=== PATIENT | male | born 1965 | race Caucasian/White ===

== ENCOUNTER 2017-09-08 09:01 | Emergency (ER) | payer SELFPAY ==
[~2017-09-08] VITALS: Ht 198.1 cm; Wt 86.0 kg
[2017-09-08 09:07] VITALS: BP 145/96; PULSE 103; RESP 20; TEMP 97.8; O2SAT 93
[2017-09-08] MEDS ORDERED: AMBI5TAB PO (09:26)
[2017-09-08] MEDS ORDERED: MORP-43 PO (09:26)
[2017-09-08] MEDS ORDERED: OXYC1CAP PO (09:26)
[2017-09-08] MEDS ORDERED: PROT40TA PO (09:26)
[2017-09-08] MEDS ORDERED: CARA1TAB6 PO (09:26)
[2017-09-08] MEDS ORDERED: ONDANSETRON HCL 4 MG/2 ML VIAL IV PUSH ONE (09:45)
[2017-09-08] MEDS ORDERED: SODIUM CHLOR 0.9% 1000 ML INJ 1,000 ML IV ONE (09:45)
[2017-09-08] MEDS ORDERED: SODIUM CHLORIDE 0.9% FLUSH 10 ML FLUSH IVF PRN (09:45)
[2017-09-08 09:46] VITALS: O2SAT 94; O2SAT 97
[2017-09-08 09:57] LABS: AUTOMATED NEUTROPHIL # 5.3 TH/MM3 (1.8-7.7); BASOPHIL % 0.5 % (0.0-2.0); EOSINOPHIL # 0.1 TH/MM3 (0-0.4); EOSINOPHIL % 1.9 % (0.0-4.0); HEMATOCRIT 45.4 % (39.0-51.0); LYMPH % 26.4 % (9.0-44.0); MEAN CORPUSCULAR HEMOGLOBIN 30.5 PG (27.0-34.0); MEAN CORPUSCULAR HGB CONC 31.5 % (32.0-36.0); MONO % 4.1 % (0.0-8.0); NEUT % 67.1 % (16.0-70.0); PLATELET COUNT 173 TH/MM3 (150-450); RED BLOOD COUNT 4.68 MIL/MM3 (4.50-5.90); RED CELL DISTRIBUTION WIDTH 15.6 % (11.6-17.2); WHITE BLOOD COUNT 7.7 TH/MM3 (4.0-11.0)
[2017-09-08] MEDS: RESP: ALBUTEROL 2.5 MG/IPRATROPIUM 0.5 MG NEB (SCH) INH ×2 (09:57→09:59)
[2017-09-08 10:01] LABS: HEMO FLAGS DIFF FINAL
[2017-09-08 10:04] LABS: CHLORIDE 105 MEQ/L (98-107); POTASSIUM 3.6 MEQ/L (3.5-5.1); SODIUM (NA) 142 MEQ/L (136-145)
[2017-09-08 10:08] LABS: ANION GAP 6 MEQ/L (5-15); BICARBONATE 30.8 MEQ/L (21.0-32.0); BLOOD UREA NITROGEN 9 MG/DL (7-18)
[2017-09-08 10:10] LABS: ALT (GPT) 46 U/L (12-78)
[2017-09-08 10:11] LABS: AST (GOT) 108 U/L (15-37); GLOMERULAR FILTRATION RATE 129 ML/MIN (>89)
[2017-09-08 10:12] LABS: TOTAL BILIRUBIN ADULT 0.5 MG/DL (0.2-1.0)
--- NOTE | 2017-09-08 10:19 | RADRPT ---
EXAM DATE/TIME: 09/08/2017 09:51 [place] COMPARISON: No previous studies available for comparison. INDICATIONS : Short of breath. MEDICAL HISTORY : Ulcers. Gastroesophageal reflux disease. SURGICAL HISTORY : None. ENCOUNTER: Initial ACUITY: 1 day PAIN SCORE: Non-responsive. LOCATION: cranial FINDINGS: Portable AP view of the chest demonstrates a normal-sized cardiac silhouette. There is mild elevation of the hilar structures bilaterally with bilateral upper lung zone densities likely representing briana cification. There is mild symmetric biapical pleural thickening. No effusion or air space consolidati on is identified. No pneumothorax is seen. Bones and soft tissues demonstrate no acute finding. CONCLUSION: 1. No acute finding is identified. 2. However, there is mild bilateral upper lung zone volume loss with parenchymal versus pleural calci fications. Some considerations include silicosis or sarcoidosis. Hua Ferro MD on September 08, 2017 at 10:16 Board Certified Radiologist. This report was verified electronically.
[2017-09-08 10:24] LABS: ALKALINE PHOSPHATASE 124 U/L (45-117)
[2017-09-08 10:48] VITALS: BP 101/59; PULSE 90; RESP 18; O2SAT 96
[2017-09-08 10:56] LABS: ALCOHOL 260 MG/DL (0-5)
[2017-09-08 11:42] VITALS: BP 103/67; PULSE 86; RESP 16; O2SAT 96
[2017-09-08] MEDS ORDERED: RESP: ALBUTEROL 2.5 MG/IPRATROPIUM 0.5 MG NEB (SCH) NEB ONE (13:15)
[2017-09-08 13:43] VITALS: BP 113/66; PULSE 89; RESP 16; O2SAT 92
[2017-09-08] MEDS ORDERED: ALBUAER3 INH (14:15)
--- NOTE | 2017-09-08 14:15 | PD ---
HPI Chief Complaint: Cold / Flu Symptoms Time Seen by Provider: 09:40 Travel History International Travel<30 days: No Contact w/Intl Traveler<30days: No Traveled to known affect area: No History of Present Illness HPI Patient is a 52 year old male, history of chronic alcoholism, who comes in complaining of cough and SOB. Patient is currently intoxicated and a very poor historian. He admits to drinking Vodka today. He does says he has a cough. He does not provide other history on how long he's had it or if he has any other symptoms. PFSH Past Medical History Diminished Hearing: No GERD: Yes Medical other: Yes (CHRONIC PAIN) Ulcer: Yes Tetanus Vaccination: < 5 Years Influenza Vaccination: Yes Past Surgical History Surgical History: No Previous Surgery Social History Alcohol Use: Yes (DAILY) Tobacco Use: Yes (1/2 PPD) Substance Use: Yes (ETOH) Allergies-Medications (Allergen,Severity, Reaction): Coded Allergies: Penicillins (Verified Allergy, Severe, 09/10/17) prednisone (Verified Allergy, Severe, rash, 09/10/17) Reported Meds & Prescriptions Reported Meds & Active Scripts Active Chlordiazepoxide HCl 25 Mg Capsule 25 Mg PO BID Atrovent HFA 12.9 GM Inh (Ipratropium [place]) 17 Mcg/Actuation Aer 2 Puff INH TID Tobrex Opth Oint (Tobramycin Sulfate) 0.3 % Oint 1 Applic EACH EYE TID Zithromax (Azithromycin) 500 Mg Tab 500 Mg PO DAILY 7 Days Bleph-10 Opth Drops (Sulfacetamide Sodium) 10 % Soln 1 Drop EACH EYE Q8HR Librax (Chlordiazepoxide/Clidinium) 5-2.5 Mg Cap 1 Cap PO TID 7 Days Proair Hfa 8.5 GM Inh (Albuterol Sulfate) 90 Mcg/Act Aer 2 Puff INH Q4-6H PRN 108 mcg/actuation Reported Carafate (Sucralfate) 1 Gram Tab 1 Gm PO QID On empty stomach Protonix (Pantoprazole Sodium) 40 Mg Tab 40 Mg PO DAILY Ambien (Zolpidem Tartrate) 5 Mg Tab Unknown Dose PO HS PRN Morphabond ER 12 HR (Morphine Sulfate) 15 Mg Tab 15 Mg PO DIRECTED Oxycodone (Oxycodone HCl) 5 Mg Cap Unknown Dose PO DIRECTED PRN Review of Systems ROS Limitations: Intoxication Physical Exam Narrative GENERAL: Awake, but drowsy, alcohol on breath. SKIN: Focused skin assessment warm/dry. HEAD: Atraumatic. Normocephalic. EYES: Pupils equal and round. No scleral icterus. EOMI. ENT: Mucous membranes pink and moist. NECK: Trachea midline. No JVD. CARDIOVASCULAR: Regular rate and rhythm. No murmur appreciated. RESPIRATORY: No accessory muscle use. Diffuse wheezing throughout both lungs. Breath sounds equal bilaterally. GASTROINTESTINAL: Abdomen soft, non-tender, nondistended. MUSCULOSKELETAL: No obvious deformities. No clubbing. No cyanosis. No edema. NEUROLOGICAL: Intoxicated. No obvious cranial nerve deficits. Motor grossly within normal limits. Slurred speech. Data Data Last Documented VS Vital Signs Date Time Temp Pulse Resp B/P (MAP) Pulse Ox O2 Delivery O2 Flow Rate FiO2 09/08/17 14:23 09/08/17 13:43 89 16 92 Room Air 09/08/17 11:42 3.00 09/08/17 09:07 97.8 Orders Orders Complete Blood Count With Diff (09/08/17 09:44) Comprehensive Metabolic Panel (09/08/17 09:44) Influenzae A/B Antigen (09/08/17 09:44) Iv Access Insert/Monitor (09/08/17 09:44) Ecg Monitoring (09/08/17 09:44) Oximetry (09/08/17 09:44) Oxygen Administration (09/08/17 09:44) Chest, Single Ap (09/08/17 09:44) Sodium Chloride 0.9% Flush (Ns Flush) (09/08/17 09:45) Albuterol-Ipratropium Neb (Duoneb Neb) (09/08/17 09:45) Sodium Chlor 0.9% 1000 Ml Inj (Ns 1000 M (09/08/17 09:45) Ondansetron Inj (Zofran Inj) (09/08/17 09:45) Lipase (09/08/17 09:44) Alcohol (Ethanol) (09/08/17 09:40) Albuterol-Ipratropium Neb (Duoneb Neb) (09/08/17 13:15) Ed Discharge Order (09/08/17 14:14) Labs Laboratory Tests Test 09/08/17 09:40 White Blood Count 7.7 TH/MM3 Red Blood Count 4.68 MIL/MM3 Hemoglobin 14.3 GM/DL Hematocrit 45.4 % Mean Corpuscular Volume 97.0 FL Mean Corpuscular Hemoglobin 30.5 PG Mean Corpuscular Hemoglobin Concent 31.5 % Red Cell Distribution Width 15.6 % Platelet Count 173 TH/MM3 Mean Platelet Volume 7.8 FL Neutrophils (%) (Auto) 67.1 % Lymphocytes (%) (Auto) 26.4 % Monocytes (%) (Auto) 4.1 % Eosinophils (%) (Auto) 1.9 % Basophils (%) (Auto) 0.5 % Neutrophils # (Auto) 5.3 TH/MM3 Lymphocytes # (Auto) 2.0 TH/MM3 Monocytes # (Auto) 0.3 TH/MM3 Eosinophils # (Auto) 0.1 TH/MM3 Basophils # (Auto) 0.0 TH/MM3 CBC Comment DIFF FINAL Differential Comment Blood Urea Nitrogen 9 MG/DL Creatinine 0.65 MG/DL Random Glucose 146 MG/DL Total Protein 7.6 GM/DL Albumin 3.6 GM/DL Calcium Level 7.9 MG/DL Alkaline Phosphatase 124 U/L Aspartate Amino Transf (AST/SGOT) 108 U/L Alanine Aminotransferase (ALT/SGPT) 46 U/L Total Bilirubin 0.5 MG/DL Sodium Level 142 MEQ/L Potassium Level 3.6 MEQ/L Chloride Level 105 MEQ/L Carbon Dioxide Level 30.8 MEQ/L Anion Gap 6 MEQ/L Estimat Glomerular Filtration Rate 129 ML/MIN Lipase 125 U/L Ethyl Alcohol Level 260 MG/DL [facility] Medical Decision Making Medical Screen Exam Complete: Yes Emergency Medical Condition: Yes Medical Record Reviewed: Yes Differential Diagnosis alcohol intoxication vs COPD exacerbation vs pneumonia Narrative Course Patient is a 52 year old male who comes in complaining of SOB. Patient is obviously intoxicated. Lungs have wheezing throughout. IV established, labs sent. Labs show an alcohol level of 266. Given 3 duonebs with some improvement. Patient observed in the ED until sober. Given additional neb treatment with improved breathing. CXR shows no evidence of pneumonia. Last 24 hours Impressions Chest X-Ray 09/08/17 0944 Signed Impressions: Service Date/Time: Friday, September 08, 2017 09:51 - CONCLUSION: 1. No acute finding is identified. 2. However, there is mild bilateral upper lung zone volume loss with parenchymal versus pleural calcifications. Some considerations include silicosis or sarcoidosis. Hua Ferro MD Patient advised to cut back alcohol use and stop cigarette smoking. Discharged with prescription for albuterol. Diagnosis Primary Impression: Alcohol intoxication Qualified Codes: F10.920 - Alcohol use, unspecified with intoxication, uncomplicated Additional Impression: COPD exacerbation Patient Instructions: COPD (Chronic Obstructive Pulmonary Disease) (ED), General Instructions Additional Instructions: Quit smoking. Use albuterol as needed for shortness of breath. Follow-up with a primary doctor. Return to the ED as needed for any worsening symptoms. Scripts Albuterol 8.5 GM Inh (Proair Hfa 8.5 GM Inh) 90 Mcg/Act Aer 2 PUFF INH Q4-6H Y for SHORTNESS OF BREATH, #1 INHALER 0 Refills 108 mcg/actuation Prov: Joanne Pinedo MD 09/08/17 Disposition: 01 DISCHARGE HOME Condition: Stable Joanne Pinedo MD Sep 08, 2017 14:15
[2017-09-09] MEDS ORDERED: LIBRAX PO (07:27)
[2017-09-09] MEDS ORDERED: SULF1SOL4 EACH EYE (20:55)
[2017-09-09] MEDS ORDERED: LIBRIUM PO (21:06)
== END 2017-09-08 14:23 | disposition home or self-care (01) ==
LOC: PHED 09:01
DX: F10.129 Alcohol abuse with intoxication, unspecified (principal); J44.1 Chronic obstructive pulmonary disease with (acute) exacerbation; Y90.8 Blood alcohol level of 240 mg/100 ml or more; F17.210 Nicotine dependence, cigarettes, uncomplicated
CPT/HCPCS: 71010; 80053; 80307; 83690; 85025; 87804; 94640; 94664; 96361; 96374; 99285; J2405; J7030

== ENCOUNTER 2017-09-09 06:06 | Emergency (ER) | payer SELFPAY ==
[~2017-09-09] VITALS: Ht 198.1 cm; Wt 88.6 kg
[~2017-09-09 06:06] MED LIST: ALBUAER3 INH; AMBI5TAB PO; CARA1TAB6 PO; MORP-43 PO; OXYC1CAP PO; PROT40TA PO
[2017-09-09 06:09] VITALS: BP 161/103; PULSE 93; RESP 18; TEMP 98.6; O2SAT 97
[2017-09-09] MEDS ORDERED: THIAMINE INJ 100 MG in SODIUM CHLORIDE 0.9% INJ 100 ML IV ONE (06:15)
--- NOTE | 2017-09-09 06:16 | PD ---
HPI Chief Complaint: Respiratory Symptoms Time Seen by Provider: 06:09 Travel History International Travel<30 days: No Contact w/Intl Traveler<30days: No Traveled to known affect area: No History of Present Illness HPI 52-year-old male returns to the emergency department by EMS transport for complaint of shortness of breath. Patient has history of bronchitis COPD. Patient smokes cigarettes. Patient also drinks alcohol on a regular basis. Patient states he decided yesterday to quit drinking alcohol also has not had any alcohol since yesterday afternoon. Patient states he has gone through alcohol withdrawal the past and was brought in admission. Patient's had no tremulousness. Patient denies any fall or injury. Patient states he could not afford to get his inhaler prescription filled so presents for shortness of breath. Patient denies other concerns or complaints. Patient's had no fever. Patient denies chest pain. EMS administered one nebulizer treatment prior to arrival to the emergency department with some symptom relief. PFSH Past Medical History Narrative Medical COPD alcohol use tobacco use; nursing notes reviewed Diminished Hearing: No GERD: Yes Respiratory: Yes (COPD) Ulcer: Yes ?: Not Social History Alcohol Use: Yes (DAILY) Tobacco Use: Yes (1/2 PPD) Substance Use: Yes (ETOH) Allergies-Medications (Allergen,Severity, Reaction): Coded Allergies: prednisone (Verified Allergy, Severe, rash, 09/09/17) Reported Meds & Prescriptions Reported Meds & Active Scripts Active Proair Hfa 8.5 GM Inh (Albuterol Sulfate) 90 Mcg/Act Aer 2 Puff INH Q4-6H PRN 108 mcg/actuation Reported Carafate (Sucralfate) 1 Gram Tab 1 Gm PO QID On empty stomach Protonix (Pantoprazole Sodium) 40 Mg Tab 40 Mg PO DAILY Ambien (Zolpidem Tartrate) 5 Mg Tab Unknown Dose PO HS PRN Morphabond ER 12 HR (Morphine Sulfate) 15 Mg Tab 15 Mg PO DIRECTED Oxycodone (Oxycodone HCl) 5 Mg Cap Unknown Dose PO DIRECTED PRN Review of Systems Except as stated in HPI: all other systems reviewed are Neg Physical Exam Narrative GENERAL: Well-developed well-nourished male in no acute distress no respiratory distress SKIN: Warm and dry. HEAD: Normocephalic. EYES: No scleral icterus. No injection or drainage. NECK: Supple, trachea midline. No JVD or lymphadenopathy. CARDIOVASCULAR: Regular rate and rhythm without murmurs, gallops, or rubs. RESPIRATORY: Breath sounds equal bilaterally. Few bilateral end expiratory wheezes. No accessory muscle use. GASTROINTESTINAL: Abdomen soft, non-tender, nondistended. MUSCULOSKELETAL: No cyanosis, or edema. BACK: Nontender without obvious deformity. No CVA tenderness. Data Data Last Documented VS Vital Signs Date Time Temp Pulse Resp B/P (MAP) Pulse Ox O2 Delivery O2 Flow Rate FiO2 09/09/17 06:18 96 Room Air 09/09/17 06:13 98 18 09/09/17 06:09 98.6 161/103 (122) Orders Orders Complete Blood Count With Diff (09/09/17 06:09) Basic Metabolic Panel (Bmp) (09/09/17 06:09) Iv Access Insert/Monitor (09/09/17 06:09) Ecg Monitoring (09/09/17 06:09) Oximetry (09/09/17 06:09) Albuterol-Ipratropium Neb (Duoneb Neb) (09/09/17 06:15) Alcohol (Ethanol) (09/09/17 06:09) Thiamine Inj (Thiamine Inj) (09/09/17 06:15) Magnesium (Mg) (09/09/17 06:09) Labs Laboratory Tests Test 09/09/17 06:43 White Blood Count 7.5 TH/MM3 Red Blood Count 4.71 MIL/MM3 Hemoglobin 14.5 GM/DL Hematocrit 44.0 % Mean Corpuscular Volume 93.6 FL Mean Corpuscular Hemoglobin 30.8 PG Mean Corpuscular Hemoglobin Concent 32.9 % Red Cell Distribution Width 15.0 % Platelet Count 139 TH/MM3 Mean Platelet Volume 8.0 FL Neutrophils (%) (Auto) 79.0 % Lymphocytes (%) (Auto) 15.0 % Monocytes (%) (Auto) 4.3 % Eosinophils (%) (Auto) 0.6 % Basophils (%) (Auto) 1.1 % Neutrophils # (Auto) 6.0 TH/MM3 Lymphocytes # (Auto) 1.1 TH/MM3 Monocytes # (Auto) 0.3 TH/MM3 Eosinophils # (Auto) 0.0 TH/MM3 Basophils # (Auto) 0.1 TH/MM3 CBC Comment DIFF FINAL Differential Comment Blood Urea Nitrogen 7 MG/DL Random Glucose 119 MG/DL Calcium Level 8.6 MG/DL Magnesium Level 1.5 MG/DL Sodium Level 138 MEQ/L Potassium Level 4.3 MEQ/L Chloride Level 102 MEQ/L Carbon Dioxide Level 28.2 MEQ/L Anion Gap 8 MEQ/L MDM Medical Decision Making Medical Screen Exam Complete: Yes Emergency Medical Condition: Yes Medical Record Reviewed: Yes Differential Diagnosis COPD exacerbation bronchitis pneumonia alcohol abuse Narrative Course Patient given [facility] 2 basic labs collected Chest x-ray done 09/08/17 revealed no acute abnormality or infiltrate care signed over to Jessy Rodriguez MD Sep 09, 2017 06:16
[2017-09-09 06:18] VITALS: O2SAT 96
[2017-09-09] MEDS: RESP: ALBUTEROL 2.5 MG/IPRATROPIUM 0.5 MG NEB (SCH) INH ×2 (06:21→06:30)
[2017-09-09 06:51] LABS: BASOPHIL # 0.1 TH/MM3 (0-0.2); BASOPHIL % 1.1 % (0.0-2.0); EOSINOPHIL % 0.6 % (0.0-4.0); HEMO FLAGS DIFF FINAL; LYMPHOCYTE # 1.1 TH/MM3 (1.0-4.8); MEAN CELL VOLUME 93.6 FL (80.0-100.0); MEAN CORPUSCULAR HEMOGLOBIN 30.8 PG (27.0-34.0); MEAN CORPUSCULAR HGB CONC 32.9 % (32.0-36.0); MONO % 4.3 % (0.0-8.0); PLATELET COUNT 139 TH/MM3 (150-450); RED BLOOD COUNT 4.71 MIL/MM3 (4.50-5.90); WHITE BLOOD COUNT 7.5 TH/MM3 (4.0-11.0)
[2017-09-09 06:59] LABS: POTASSIUM 4.3 MEQ/L (3.5-5.1)
[2017-09-09 07:02] LABS: BICARBONATE 28.2 MEQ/L (21.0-32.0); MAGNESIUM 1.5 MG/DL (1.5-2.5)
[2017-09-09 07:05] VITALS: BP 142/94; PULSE 96; RESP 16; O2SAT 97
[2017-09-09] MEDS ORDERED: ALBUTEROL SULFATE 90 MCG/ACT HFA 8 GM INHALER INH ONE (07:15)
[2017-09-09] MEDS ORDERED: LORazepam 2 MG/ML VIAL IV PUSH ONE (07:15)
[2017-09-09] MEDS ORDERED: LIBRAX PO (07:27)
--- NOTE | 2017-09-09 07:31 | PD ---
Physical Exam Narrative GENERAL: SKIN: Warm and dry. HEAD: Atraumatic. Normocephalic. EYES: Pupils equal and round. No scleral icterus. No injection or drainage. ENT: No nasal bleeding or discharge. Mucous membranes pink and moist. NECK: Trachea midline. No JVD. CARDIOVASCULAR: Regular rate and rhythm. RESPIRATORY: No accessory muscle use. bilateral mild wheezes, good expansion/ tidal volume. GASTROINTESTINAL: Abdomen soft, non-tender, nondistended. MUSCULOSKELETAL: Extremities without clubbing, cyanosis, or edema. No obvious deformities. NEUROLOGICAL: Awake and alert. No obvious cranial nerve deficits. Motor grossly within normal limits. Five out of 5 muscle strength in the arms and legs. Normal speech. PSYCHIATRIC: Appropriate mood and affect; insight and judgment normal. Data Data Last Documented VS Vital Signs Date Time Temp Pulse Resp B/P (MAP) Pulse Ox O2 Delivery O2 Flow Rate FiO2 09/09/17 06:18 96 Room Air 09/09/17 06:13 98 18 09/09/17 06:09 98.6 161/103 (122) Orders Orders Complete Blood Count With Diff (09/09/17 06:09) Basic Metabolic Panel (Bmp) (09/09/17 06:09) Iv Access Insert/Monitor (09/09/17 06:09) Ecg Monitoring (09/09/17 06:09) Oximetry (09/09/17 06:09) Albuterol-Ipratropium Neb (Duoneb Neb) (09/09/17 06:15) Alcohol (Ethanol) (09/09/17 06:09) Thiamine Inj (Thiamine Inj) (09/09/17 06:15) Magnesium (Mg) (09/09/17 06:09) Lorazepam Inj (Ativan Inj) (09/09/17 07:15) Resp Mdi/Instruction (09/09/17 ) Albuterol Hfa Inh (Proair Hfa Inh) (09/09/17 07:15) Labs Laboratory Tests Test 09/09/17 06:43 White Blood Count 7.5 TH/MM3 Red Blood Count 4.71 MIL/MM3 Hemoglobin 14.5 GM/DL Hematocrit 44.0 % Mean Corpuscular Volume 93.6 FL Mean Corpuscular Hemoglobin 30.8 PG Mean Corpuscular Hemoglobin Concent 32.9 % Red Cell Distribution Width 15.0 % Platelet Count 139 TH/MM3 Mean Platelet Volume 8.0 FL Neutrophils (%) (Auto) 79.0 % Lymphocytes (%) (Auto) 15.0 % Monocytes (%) (Auto) 4.3 % Eosinophils (%) (Auto) 0.6 % Basophils (%) (Auto) 1.1 % Neutrophils # (Auto) 6.0 TH/MM3 Lymphocytes # (Auto) 1.1 TH/MM3 Monocytes # (Auto) 0.3 TH/MM3 Eosinophils # (Auto) 0.0 TH/MM3 Basophils # (Auto) 0.1 TH/MM3 CBC Comment DIFF FINAL Differential Comment Blood Urea Nitrogen 7 MG/DL Creatinine 0.67 MG/DL Random Glucose 119 MG/DL Calcium Level 8.6 MG/DL Magnesium Level 1.5 MG/DL Sodium Level 138 MEQ/L Potassium Level 4.3 MEQ/L Chloride Level 102 MEQ/L Carbon Dioxide Level 28.2 MEQ/L Anion Gap 8 MEQ/L Estimat Glomerular Filtration Rate 125 ML/MIN Ethyl Alcohol Level 8 MG/DL MDM Medical Record Reviewed: Yes Supervised Visit with JAMES: No Narrative Course patients wheezing responded well to treatment in ED, normal pulse ox, afebrile, nontachycardic, patient is alert and oriented x 4, gcs 15, no focal neurologic deficits noted. mild tremulousness due to his attempt to quit drinking alcohol , patient tolerated ativan dose and has no hallucinations. patient is clear to discharge, no si/hi. patient will be given librax to assist with his attempt to stop drinking, and given follow up instructions. patient already has steroids at home and will have an inhaler mdi upon discharge today after teaching/education on how to appropriately use it. Diagnosis Primary Impression: copd flare Referrals: [facility] Patient Instructions: Alcohol Use Disorder (ED), COPD (Chronic Obstructive Pulmonary Disease) (ED), General Instructions Scripts Chlordiazepoxide-Clidinium (Librax) 5-2.5 Mg Cap 1 CAP PO TID for 7 Days, #21 CAP 0 Refills Prov: Ladarius Uriarte MD 09/09/17 Disposition: 01 DISCHARGE HOME Condition: Stable Ladarius Uriarte MD Sep 09, 2017 07:31
[2017-09-09 08:05] VITALS: BP 143/83; PULSE 92; RESP 16; O2SAT 95
[2017-09-09] MEDS ORDERED: SULF1SOL4 EACH EYE (20:55)
[2017-09-09] MEDS ORDERED: LIBRIUM PO (21:06)
[2017-09-10] MEDS ORDERED: IPRA17I INH (10:59)
[2017-09-10] MEDS ORDERED: TOBR.3%O EACH EYE (10:59)
[2017-09-10] MEDS ORDERED: ZITH500T PO (10:59)
[2017-09-10] MEDS ORDERED: CHLO25CA9 PO (12:23)
== END 2017-09-09 08:21 | disposition home or self-care (01) ==
LOC: PHED 06:06
DX: J44.1 Chronic obstructive pulmonary disease with (acute) exacerbation (principal); K21.9 Gastro-esophageal reflux disease without esophagitis; F17.200 Nicotine dependence, unspecified, uncomplicated; Z79.899 Other long term (current) drug therapy; Z72.89 Other problems related to lifestyle
CPT/HCPCS: 80048; 80307; 83735; 85025; 94640; 94664; 96365; 96375; 99284; J2060; J3411

== ENCOUNTER 2017-09-09 20:22 | Emergency (ER) | payer SELFPAY ==
[~2017-09-09] VITALS: Ht 198.1 cm; Wt 87.5 kg
[~2017-09-09 20:22] MED LIST changes: +LIBRAX PO
[2017-09-09 20:27] VITALS: BP 141/95; PULSE 90; RESP 18; TEMP 98.1; O2SAT 96
[2017-09-09] MEDS ORDERED: SULF1SOL4 EACH EYE (20:55)
--- NOTE | 2017-09-09 20:56 | PD ---
HPI Chief Complaint: Eye Problems/Injury Time Seen by Provider: 20:44 Travel History International Travel<30 days: No Contact w/Intl Traveler<30days: No Traveled to known affect area: No History of Present Illness HPI The patient is a 52-year-old male, frequent visitor to this emergency department usually for alcohol related problems who complains of red eye and both eyes for 3 days. This is the third visit in 2 days for this patient. The reason he is here tonight is not some much to have his conjunctivitis treated but to get admitted. He states he cannot afford the medications that he was given, the Librax and the pro-air HFA. He states [facility] never has beds. He states his last alcohol was 9 hours ago. [facility] Past Medical History Diminished Hearing: No GERD: Yes Respiratory: Yes (COPD) Ulcer: Yes ?: Not Social History Alcohol Use: Yes (DAILY) Tobacco Use: Yes (1/2 PPD) Substance Use: Yes (ETOH) Allergies-Medications (Allergen,Severity, Reaction): Coded Allergies: prednisone (Verified Allergy, Severe, rash, 09/09/17) Reported Meds & Prescriptions Reported Meds & Active Scripts Active Bleph-10 Opth Drops (Sulfacetamide Sodium) 10 % Soln 1 Drop EACH EYE Q8HR Librax (Chlordiazepoxide/Clidinium) 5-2.5 Mg Cap 1 Cap PO TID 7 Days Proair Hfa 8.5 GM Inh (Albuterol Sulfate) 90 Mcg/Act Aer 2 Puff INH Q4-6H PRN 108 mcg/actuation Reported Carafate (Sucralfate) 1 Gram Tab 1 Gm PO QID On empty stomach Protonix (Pantoprazole Sodium) 40 Mg Tab 40 Mg PO DAILY Ambien (Zolpidem Tartrate) 5 Mg Tab Unknown Dose PO HS PRN Morphabond ER 12 HR (Morphine Sulfate) 15 Mg Tab 15 Mg PO DIRECTED Oxycodone (Oxycodone HCl) 5 Mg Cap Unknown Dose PO DIRECTED PRN Review of Systems Except as stated in HPI: all other systems reviewed are Neg Physical Exam Narrative GENERAL: Well-nourished, well-developed patient in minimal apparent distress with his conjunctival injection. His vital signs are 141/95 but are otherwise normal. The patient smells strongly of beer. He does not appear to be clinically intoxicated. SKIN: Focused skin assessment warm/dry. HEAD: Normocephalic. EYES: No scleral icterus. There is bilateral conjunctival injection with clear drainage. No corneal involvement is present. NECK: Supple, trachea midline. No JVD or lymphadenopathy. CARDIOVASCULAR: Regular rate and rhythm without murmurs, gallops, or rubs. RESPIRATORY: Breath sounds equal bilaterally. No accessory muscle use. GASTROINTESTINAL: Abdomen soft, non-tender, nondistended. MUSCULOSKELETAL: No cyanosis, or edema. BACK: Nontender without obvious deformity. No CVA tenderness. Data Data Last Documented VS Vital Signs Date Time Temp Pulse Resp B/P (MAP) Pulse Ox O2 Delivery O2 Flow Rate FiO2 09/09/17 20:27 98.1 90 18 141/95 (110) 96 Orders Orders Sulfacetamide 10% Opth Soln (Bleph-10 Op (09/09/17 21:00) [facility] Medical Decision Making Medical Screen Exam Complete: Yes Emergency Medical Condition: Yes Medical Record Reviewed: Yes Differential Diagnosis Alcohol intoxication, alcohol withdrawal, conjunctivitis-viral conjunctivitis- allergic, conjunctivitis-bacterial, conjunctivitis-fungal Narrative Course The patient has no evidence of alcohol withdrawal. He does not have a tremor and he does not have a tachycardia. He does smell strongly of alcohol this time but does not appear to be clinically intoxicated. He does have what appears to be a viral conjunctivitis. This time the patient does not warrant admission. Diagnosis Primary Impression: Conjunctivitis Additional Impression: Alcohol abuse Additional Instructions: Follow-up with [facility] in the morning, that is when they can take patients in, when they have the most room. Use warm compresses twice daily and put the antibiotic drops and after the warm compresses. Med/Other Pt SpecificInfo: Prescription(s) given Scripts Sulfacetamide Opth Drops (Bleph-10 Opth Drops) 10 % Soln 1 DROP EACH EYE Q8HR for Infection, #1 BOTTLE 0 Refills Prov: Dante Galeano MD 09/09/17 Disposition: 01 DISCHARGE HOME Condition: Stable Dante Galeano MD Sep 09, 2017 20:55
[2017-09-09] MEDS ORDERED: SULFACETAMIDE SODIUM 10% OPTH SOLN 15 ML BTL EACH EYE ONE (21:00)
[2017-09-09] MEDS ORDERED: LIBRIUM PO (21:06)
--- NOTE | 2017-09-09 21:07 | PD ---
Physical Exam Narrative This is for prescription Data Data Last Documented VS Vital Signs Date Time Temp Pulse Resp B/P (MAP) Pulse Ox O2 Delivery O2 Flow Rate FiO2 09/09/17 20:27 98.1 90 18 141/95 (110) 96 Orders Orders Sulfacetamide 10% Opth Soln (Bleph-10 Op (09/09/17 21:00) MDM Medical Record Reviewed: Yes Supervised Visit with JAMES: No Diagnosis Primary Impression: Conjunctivitis Additional Impression: Alcohol abuse Patient Instructions: General Instructions, Abuse of Alcohol (ED), Conjunctivitis (ED) Departure Forms: Tests/Procedures Additional Instruction: Follow-up with [facility] in the morning, that is when they can take patients in, when they have the most room. Use warm compresses twice daily and put the antibiotic drops and after the warm compresses. Scripts [Librium] No Conflict Check 25 MG PO Q8HR for Agitation, #15 Prov: Dante Galeano MD 09/09/17 Sulfacetamide Opth Drops (Bleph-10 Opth Drops) 10 % Soln 1 DROP EACH EYE Q8HR for Infection, #1 BOTTLE 0 Refills Prov: Dante Galeano MD 09/09/17 Disposition: 01 DISCHARGE HOME Condition: Stable Dante Galeano MD Sep 09, 2017 21:07
[2017-09-09] MEDS ORDERED: SULFACETAMIDE SODIUM 10% OPTH SOLN 5 ML BTL EACH EYE ONE (21:15)
[2017-09-10] MEDS ORDERED: ZITH500T PO (10:59)
[2017-09-10] MEDS ORDERED: IPRA17I INH (10:59)
[2017-09-10] MEDS ORDERED: TOBR.3%O EACH EYE (10:59)
[2017-09-10] MEDS ORDERED: CHLO25CA9 PO (12:23)
== END 2017-09-09 21:19 | disposition home or self-care (01) ==
LOC: PHED 20:22
DX: B30.9 Viral conjunctivitis, unspecified (principal); F10.10 Alcohol abuse, uncomplicated; K21.9 Gastro-esophageal reflux disease without esophagitis; J44.9 Chronic obstructive pulmonary disease, unspecified; F17.200 Nicotine dependence, unspecified, uncomplicated; Z72.89 Other problems related to lifestyle
CPT/HCPCS: 99283

== ENCOUNTER 2017-09-10 08:09 | Emergency (ER) | payer SELFPAY ==
[~2017-09-10] VITALS: Ht 198.1 cm; Wt 86.0 kg
[~2017-09-10 08:09] MED LIST changes: +LIBRIUM PO; +SULF1SOL4 EACH EYE
[2017-09-10 08:11] VITALS: BP 188/111; PULSE 111; RESP 18; TEMP 97.8; O2SAT 93
--- NOTE | 2017-09-10 08:27 | PD ---
HPI Chief Complaint: Cold / Flu Symptoms Time Seen by Provider: 08:27 Travel History International Travel<30 days: No Contact w/Intl Traveler<30days: No Traveled to known affect area: No History of Present Illness HPI Patient presents with complaints of several weeks of bronchitis. Reports evaluation at [place] with oral antibiotics. States symptoms do not resolve. Return to [place] but was not given any repeat antibiotics. States acute onset of bilateral conjunctivitis 2 days ago for which he was given eyedrops 4. History of COPD. States he is stopped smoking recently. Denies nausea or vomiting. Subjective fever. No diarrhea. No new rashes. PFSH Past Medical History Diminished Hearing: No GERD: Yes Respiratory: Yes (COPD) Ulcer: Yes Social History Alcohol Use: Yes (DAILY) Tobacco Use: Yes (1/2 PPD) Substance Use: Yes (ETOH) Allergies-Medications (Allergen,Severity, Reaction): Coded Allergies: Penicillins (Verified Allergy, Severe, 09/10/17) prednisone (Verified Allergy, Severe, rash, 09/10/17) Reported Meds & Prescriptions Reported Meds & Active Scripts Active Atrovent HFA 12.9 GM Inh (Ipratropium [place]) 17 Mcg/Actuation Aer 2 Puff INH TID Tobrex Opth Oint (Tobramycin Sulfate) 0.3 % Oint 1 Applic EACH EYE TID Zithromax (Azithromycin) 500 Mg Tab 500 Mg PO DAILY 7 Days Bleph-10 Opth Drops (Sulfacetamide Sodium) 10 % Soln 1 Drop EACH EYE Q8HR Librax (Chlordiazepoxide/Clidinium) 5-2.5 Mg Cap 1 Cap PO TID 7 Days Proair Hfa 8.5 GM Inh (Albuterol Sulfate) 90 Mcg/Act Aer 2 Puff INH Q4-6H PRN 108 mcg/actuation Reported Carafate (Sucralfate) 1 Gram Tab 1 Gm PO QID On empty stomach Protonix (Pantoprazole Sodium) 40 Mg Tab 40 Mg PO DAILY Ambien (Zolpidem Tartrate) 5 Mg Tab Unknown Dose PO HS PRN Morphabond ER 12 HR (Morphine Sulfate) 15 Mg Tab 15 Mg PO DIRECTED Oxycodone (Oxycodone HCl) 5 Mg Cap Unknown Dose PO DIRECTED PRN Review of Systems General / Constitutional: Positive: Fever Eyes: Positive: Drainage, Redness, No: Visual changes HENT: No: Headaches Cardiovascular: No: Chest Pain or Discomfort Respiratory: Positive: Cough, Shortness of Breath, Wheezing Gastrointestinal: No: Abdominal Pain Genitourinary: No: Dysuria Musculoskeletal: No: Pain Skin: No Rash Neurologic: No: Weakness Psychiatric: No: Depression Endocrine: No: Polydipsia Hematologic/Lymphatic: No: Easy Bruising Physical Exam Narrative GENERAL: Well-nourished, well-developed patient. SKIN: Focused skin assessment warm/dry. HEAD: Normocephalic. EYES: Bilateral conjunctivae erythematous with drainage. NECK: Supple, trachea midline. No JVD or lymphadenopathy. CARDIOVASCULAR: Regular rate and rhythm without murmurs, gallops, or rubs. RESPIRATORY: Poor breath sounds, end expiratory wheeze in all huggins GASTROINTESTINAL: Abdomen soft, non-tender, nondistended. MUSCULOSKELETAL: No cyanosis, or edema. BACK: Nontender without obvious deformity. No CVA tenderness. Data Data Last Documented VS Vital Signs Date Time Temp Pulse Resp B/P (MAP) Pulse Ox O2 Delivery O2 Flow Rate FiO2 09/10/17 10:52 91 Nasal Cannula 2.00 09/10/17 10:52 97 20 112/72 (85) 09/10/17 08:11 97.8 Orders Orders Complete Blood Count With Diff (09/10/17 08:27) Comprehensive Metabolic Panel (09/10/17 08:27) Iv Access Insert/Monitor (09/10/17 08:27) Ecg Monitoring (09/10/17 08:27) Oximetry (09/10/17 08:27) Oxygen Administration (09/10/17 08:27) Chest, Single Ap (09/10/17 08:27) Sodium Chloride 0.9% Flush (Ns Flush) (09/10/17 08:30) Albuterol-Ipratropium Neb (Duoneb Neb) (09/10/17 08:30) Azithromycin Inj (Zithromax Inj) (09/10/17 08:30) Ondansetron Inj (Zofran Inj) (09/10/17 09:00) Vascular Access Team Consult/P PRN (09/10/17 09:17) Vascular Poc Ultrasound (09/10/17 ) Case Management Consult (09/10/17 ) Labs Laboratory Tests Test 09/10/17 08:45 White Blood Count 5.8 TH/MM3 Red Blood Count 4.68 MIL/MM3 Hemoglobin 14.3 GM/DL Hematocrit 44.1 % Mean Corpuscular Volume 94.3 FL Mean Corpuscular Hemoglobin 30.6 PG Mean Corpuscular Hemoglobin Concent 32.5 % Red Cell Distribution Width 15.4 % Platelet Count 155 TH/MM3 Mean Platelet Volume 7.8 FL Neutrophils (%) (Auto) 69.5 % Lymphocytes (%) (Auto) 21.8 % Monocytes (%) (Auto) 5.4 % Eosinophils (%) (Auto) 1.6 % Basophils (%) (Auto) 1.7 % Neutrophils # (Auto) 4.0 TH/MM3 Lymphocytes # (Auto) 1.3 TH/MM3 Monocytes # (Auto) 0.3 TH/MM3 Eosinophils # (Auto) 0.1 TH/MM3 Basophils # (Auto) 0.1 TH/MM3 CBC Comment DIFF FINAL Differential Comment Blood Urea Nitrogen 4 MG/DL Creatinine 0.59 MG/DL Random Glucose 97 MG/DL Total Protein 7.5 GM/DL Albumin 3.5 GM/DL Calcium Level 8.2 MG/DL Alkaline Phosphatase 130 U/L Aspartate Amino Transf (AST/SGOT) 82 U/L Alanine Aminotransferase (ALT/SGPT) 34 U/L Total Bilirubin 0.9 MG/DL Sodium Level 138 MEQ/L Potassium Level 3.3 MEQ/L Chloride Level 102 MEQ/L Carbon Dioxide Level 28.5 MEQ/L Anion Gap 8 MEQ/L Estimat Glomerular Filtration Rate 144 ML/MIN MDM Medical Decision Making Medical Screen Exam Complete: Yes Emergency Medical Condition: Yes Differential Diagnosis COPD exacerbation, pneumonia, conjunctivitis Narrative Course Assessment and plan discussed with patient at bedside Physician Communication Physician Communication Discussed possibility of admission for observation with [facility]. Case management consult with arrangement of medications and discharge. Diagnosis Primary Impression: COPD exacerbation Additional Impressions: Conjunctivitis Qualified Codes: H10.33 - Unspecified acute conjunctivitis, bilateral Alcohol abuse Noncompliance with medications Patient Instructions: General Instructions Additional Instructions: Encouraged alcohol and tobacco cessation. Encourage compliance with medications. Encouraged to follow-up with PCP. Encouraged to return emergently with any onset of new symptoms. Med/Other Pt SpecificInfo: Prescription(s) given Scripts Ipratropium HFA 12.9 GM Inh (Atrovent HFA 12.9 GM Inh) 17 Mcg/Actuation Aer 2 PUFF INH TID for Cough, #1 INHALER 0 Refills Prov: Jonah Agustin MD 09/10/17 Tobramycin Opth Oint (Tobrex Opth Oint) 0.3 % Oint 1 APPLIC EACH EYE TID for Infection, #1 TUBE 0 Refills Prov: Jonah Agustin MD 09/10/17 Azithromycin (Zithromax) 500 Mg Tab 500 MG PO DAILY for Infection for 7 Days, #7 TAB 0 Refills Prov: Jonah Agustin MD 09/10/17 Disposition: 01 DISCHARGE HOME Condition: Good Jonah Agustin MD Sep 10, 2017 08:27
[2017-09-10] MEDS ORDERED: SODIUM CHLORIDE 0.9% FLUSH 10 ML FLUSH IVF PRN (08:30)
[2017-09-10] MEDS ORDERED: AZITHROMYCIN INJ 500 MG in SODIUM CHLOR 0.9% 250 ML INJ 250 ML IV ONE (08:30)
[2017-09-10] MEDS: RESP: ALBUTEROL 2.5 MG/IPRATROPIUM 0.5 MG NEB (SCH) INH ×2 (08:38→08:39)
[2017-09-10 08:49] LABS: BASOPHIL # 0.1 TH/MM3 (0-0.2); BASOPHIL % 1.7 % (0.0-2.0); EOSINOPHIL # 0.1 TH/MM3 (0-0.4); EOSINOPHIL % 1.6 % (0.0-4.0); HEMATOCRIT 44.1 % (39.0-51.0); HEMO FLAGS DIFF FINAL; LYMPH % 21.8 % (9.0-44.0); LYMPHOCYTE # 1.3 TH/MM3 (1.0-4.8); MEAN CELL VOLUME 94.3 FL (80.0-100.0); MEAN CORPUSCULAR HEMOGLOBIN 30.6 PG (27.0-34.0); MEAN CORPUSCULAR HGB CONC 32.5 % (32.0-36.0); MONO % 5.4 % (0.0-8.0); NEUT % 69.5 % (16.0-70.0); PLATELET COUNT 155 TH/MM3 (150-450); RED BLOOD COUNT 4.68 MIL/MM3 (4.50-5.90); RED CELL DISTRIBUTION WIDTH 15.4 % (11.6-17.2); WHITE BLOOD COUNT 5.8 TH/MM3 (4.0-11.0)
--- NOTE | 2017-09-10 08:54 | RADRPT ---
EXAM DATE/TIME: 09/10/2017 08:35 [facility] COMPARISON: CHEST SINGLE AP, September 08, 2017, 9:51. INDICATIONS : Short of breath, cough, chest pains MEDICAL HISTORY : Chronic obstructive pulmonary disease. TB SURGICAL HISTORY : None. ENCOUNTER: Initial ACUITY: 2 weeks PAIN SCORE: 9/10 LOCATION: Bilateral chest FINDINGS: Chronic appearing bilateral upper lobe nodular consolidation again noted with pleural thickening, unc hanged. Small, bilateral pleural effusions are developing. No pneumothorax. Heart size stable, within normal limits. CONCLUSION: 1. Nodular consolidation of both upper lobes not significantly changed. 2. Small bilateral pleural effusions have developed. Hua Benites MD on September 10, 2017 at 8:50 Board Certified Radiologist. This report was verified electronically.
[2017-09-10] MEDS ORDERED: ONDANSETRON HCL 4 MG/2 ML VIAL IV PUSH ONE (09:00)
[2017-09-10 09:04] VITALS: O2SAT 95
[2017-09-10 09:10] LABS: ALKALINE PHOSPHATASE 130 U/L (45-117); ALT (GPT) 34 U/L (12-78); ANION GAP 8 MEQ/L (5-15); AST (GOT) 82 U/L (15-37); BICARBONATE 28.5 MEQ/L (21.0-32.0); BLOOD UREA NITROGEN 4 MG/DL (7-18); CHLORIDE 102 MEQ/L (98-107); GLOMERULAR FILTRATION RATE 144 ML/MIN (>89); POTASSIUM 3.3 MEQ/L (3.5-5.1); SODIUM (NA) 138 MEQ/L (136-145); TOTAL BILIRUBIN ADULT 0.9 MG/DL (0.2-1.0)
[2017-09-10 09:20] VITALS: BP 136/74; PULSE 114; RESP 18; O2SAT 95
[2017-09-10 10:19] VITALS: PULSE 100; RESP 16; O2SAT 85
[2017-09-10 10:52] VITALS: BP 112/72; PULSE 97; RESP 20; O2SAT 91
[2017-09-10] MEDS ORDERED: IPRA17I INH (10:59)
[2017-09-10] MEDS ORDERED: ZITH500T PO (10:59)
[2017-09-10] MEDS ORDERED: TOBR.3%O EACH EYE (10:59)
[2017-09-10 12:20] VITALS: BP 126/80; PULSE 84; RESP 18; O2SAT 95
[2017-09-10] MEDS ORDERED: CHLO25CA9 PO (12:23)
[2017-09-10] MEDS ORDERED: chlordiazePOXIDE 25 MG CAP PO PRN (12:30)
== END 2017-09-10 12:57 | disposition home or self-care (01) ==
LOC: PHED 08:09
DX: J44.1 Chronic obstructive pulmonary disease with (acute) exacerbation (principal); H10.33 Unspecified acute conjunctivitis, bilateral; F10.10 Alcohol abuse, uncomplicated; Z91.14 Patient's other noncompliance with medication regimen; Z72.0 Tobacco use
CPT/HCPCS: 71010; 80053; 85025; 94640; 94664; 96365; 96366; 96375; 99285; J0456; J2405; J7050

== ENCOUNTER 2017-09-18 18:53 | Emergency (ER) | payer OTHER ==
[~2017-09-18] VITALS: Ht 198.1 cm; Wt 94.0 kg
[~2017-09-18 18:53] MED LIST changes: +CHLO25CA9 PO; +IPRA17I INH; -LIBRIUM PO; +TOBR.3%O EACH EYE; +ZITH500T PO
[2017-09-18 19:32] VITALS: BP 122/82; PULSE 96; RESP 18; TEMP 98.4; O2SAT 96
[2017-09-18 20:48] LABS: AUTOMATED NEUTROPHIL # 4.2 TH/MM3 (1.8-7.7); BASOPHIL % 0.4 % (0.0-2.0); EOSINOPHIL # 0.1 TH/MM3 (0-0.4); EOSINOPHIL % 1.3 % (0.0-4.0); HEMATOCRIT 45.7 % (39.0-51.0); HEMOGLOBIN 15.2 GM/DL (13.0-17.0); LYMPH % 35.1 % (9.0-44.0); LYMPHOCYTE # 2.5 TH/MM3 (1.0-4.8); MEAN CELL VOLUME 95.1 FL (80.0-100.0); MEAN CORPUSCULAR HEMOGLOBIN 31.6 PG (27.0-34.0); MEAN CORPUSCULAR HGB CONC 33.3 % (32.0-36.0); MEAN PLATELET VOLUME 7.7 FL (7.0-11.0); MONOCYTE # 0.4 TH/MM3 (0-0.9); NEUT % 58.2 % (16.0-70.0); PLATELET COUNT 159 TH/MM3 (150-450); RED BLOOD COUNT 4.81 MIL/MM3 (4.50-5.90); WHITE BLOOD COUNT 7.2 TH/MM3 (4.0-11.0)
[2017-09-18 21:01] LABS: ALBUMIN 3.6 GM/DL (3.4-5.0); ALT (GPT) 26 U/L (12-78); AST (GOT) 103 U/L (15-37); BICARBONATE 24.9 MEQ/L (21.0-32.0); BLOOD UREA NITROGEN 7 MG/DL (7-18); CALCIUM 8.4 MG/DL (8.5-10.1); CHLORIDE 105 MEQ/L (98-107); CREATININE 0.67 MG/DL (0.60-1.30); GLOMERULAR FILTRATION RATE 125 ML/MIN (>89); GLUCOSE,RANDOM 87 MG/DL (74-106); SODIUM (NA) 142 MEQ/L (136-145)
[2017-09-18 21:03] LABS: ALKALINE PHOSPHATASE 97 U/L (45-117); TOTAL BILIRUBIN ADULT 0.7 MG/DL (0.2-1.0); TOTAL PROTEIN 7.9 GM/DL (6.4-8.2)
[2017-09-18 21:16] VITALS: BP 136/102; PULSE 97; RESP 20; O2SAT 100
[2017-09-18] MEDS ORDERED: LORazepam 2 MG/ML VIAL IV PUSH PRN ×4 (21:30)
[2017-09-18] MEDS ORDERED: LORazepam 1 MG TAB PO PRN (21:30)
[2017-09-18] MEDS ORDERED: FLUMAZENIL 0.5 MG/5 ML VIAL IV PUSH PRN (21:30)
[2017-09-18] MEDS ORDERED: LORazepam 2 MG TAB PO PRN (21:30)
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
== END 2017-09-19 03:07 ==
LOC: NEDAMB 18:53 → NEPJ 09-19 03:07
DX: F10.229 Alcohol dependence with intoxication, unspecified (principal); F17.200 Nicotine dependence, unspecified, uncomplicated; K21.9 Gastro-esophageal reflux disease without esophagitis; Y90.8 Blood alcohol level of 240 mg/100 ml or more
CPT/HCPCS: 80053; 80307; 83690; 85025; 99283

== ENCOUNTER 2017-10-06 16:31 | Emergency (ER) | payer OTHER ==
[~2017-10-06] VITALS: Ht 198.1 cm; Wt 100.0 kg
[~2017-10-06 16:31] MED LIST changes: -ALBUAER3 INH; -AMBI5TAB PO; -CHLO25CA9 PO; -IPRA17I INH; -LIBRAX PO; -MORP-43 PO; -OXYC1CAP PO; -SULF1SOL4 EACH EYE; -TOBR.3%O EACH EYE; -ZITH500T PO
[2017-10-06 16:54] VITALS: BP 131/85; PULSE 99; RESP 18; TEMP 98; O2SAT 96
[2017-10-06 17:45] LABS: AUTOMATED NEUTROPHIL # 1.5 TH/MM3 (1.8-7.7); BASOPHIL # 0.1 TH/MM3 (0-0.2); EOSINOPHIL # 0.1 TH/MM3 (0-0.4); EOSINOPHIL % 3.5 % (0.0-4.0); HEMATOCRIT 51.5 % (39.0-51.0); HEMOGLOBIN 16.9 GM/DL (13.0-17.0); LYMPH % 49.6 % (9.0-44.0); MEAN CELL VOLUME 96.5 FL (80.0-100.0); MEAN CORPUSCULAR HEMOGLOBIN 31.8 PG (27.0-34.0); MEAN CORPUSCULAR HGB CONC 32.9 % (32.0-36.0); MEAN PLATELET VOLUME 7.3 FL (7.0-11.0); MONO % 7.2 % (0.0-8.0); MONOCYTE # 0.3 TH/MM3 (0-0.9); NEUT % 36.7 % (16.0-70.0); PLATELET COUNT 184 TH/MM3 (150-450); RED BLOOD COUNT 5.34 MIL/MM3 (4.50-5.90); RED CELL DISTRIBUTION WIDTH 16.1 % (11.6-17.2)
[2017-10-06 17:46] LABS: BILIRUBIN, URINE NEG (NEG); BLOOD, URINE NEG (NEG); GLUCOSE,URINE TRACE mg/dL (NEG); KETONE, URINE NEG (NEG); NITRITE,URINE NEG (NEG); PH, URINE 5.5 (5.0-8.5); URINE COLOR LIGHT-YELLOW (YELLW/STRAW); URINE LEUKOCYTE ESTERASE NEG (NEG)
[2017-10-06 18:16] LABS: ALBUMIN 4.4 GM/DL (3.4-5.0); ALT (GPT) 55 U/L (12-78); AST (GOT) 164 U/L (15-37); BICARBONATE 29.3 MEQ/L (21.0-32.0); BLOOD UREA NITROGEN 8 MG/DL (7-18); CALCIUM 9.1 MG/DL (8.5-10.1); CHLORIDE 108 MEQ/L (98-107); GLOMERULAR FILTRATION RATE 102 ML/MIN (>89); GLUCOSE,RANDOM 152 MG/DL (74-106); SODIUM (NA) 146 MEQ/L (136-145)
[2017-10-06 18:18] LABS: ALKALINE PHOSPHATASE 93 U/L (45-117); TOTAL BILIRUBIN ADULT 0.6 MG/DL (0.2-1.0); TOTAL PROTEIN 8.9 GM/DL (6.4-8.2)
[2017-10-06] MEDS ORDERED: ACETAMINOPHEN 500 MG CPLT PO ONE (18:30)
[2017-10-06 19:30] VITALS: BP 127/82; PULSE 93; RESP 17; TEMP 98.9; O2SAT 98
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
[2017-10-06] MEDS ORDERED: FLUMAZENIL 0.5 MG/5 ML VIAL IV PUSH PRN (21:30)
[2017-10-06] MEDS ORDERED: LORazepam 2 MG TAB PO PRN (21:30)
[2017-10-06] MEDS ORDERED: LORazepam 1 MG TAB PO PRN (21:30)
[2017-10-06] MEDS ORDERED: LORazepam 2 MG/ML VIAL IV PUSH PRN ×4 (21:30)
[2017-10-06 22:00] VITALS: BP 129/71; PULSE 87; TEMP 98.8; O2SAT 99
[2017-10-06 22:30] VITALS: BP 163/91; PULSE 60; RESP 18; TEMP 96.9; O2SAT 99
[2017-10-07 04:00] VITALS: BP 178/102; PULSE 110; RESP 20; TEMP 98.7; O2SAT 96
[2017-10-07] MEDS ORDERED: ASPIRIN 81 MG CHEW TAB PO ONE (04:15)
[2017-10-07] MEDS ORDERED: ALUMINUM/MAGNESIUM/SIMETH 30 ML CUP PO ONE (04:15)
[2017-10-07] MEDS ORDERED: LIDOCAINE VISCOUS 2% SOLN 15 ML UDC PO ONE (04:15)
[2017-10-07 04:24] LABS: MAGNESIUM 2.1 MG/DL (1.5-2.5)
[2017-10-07 04:26] LABS: TROPONIN I LESS THAN 0.02 NG/ML (0.02-0.05)
--- NOTE | 2017-10-07 04:28 | RADRPT ---
EXAM DATE/TIME: 10/07/2017 04:11 [facility] COMPARISON: CHEST SINGLE AP, September 10, 2017, 8:35. INDICATIONS : Chest pain MEDICAL HISTORY : Gastroesophageal reflux disease. Hepatitis B. Hepatitis C. HTN, COPD SURGICAL HISTORY : None. ENCOUNTER: Initial ACUITY: 1 day PAIN SCORE: 8/10 LOCATION: Bilateral chest FINDINGS: Single AP view of the chest. Multiple calcifications are again seen in the upper lung zones. Lungs ar e otherwise clear. Cardiomediastinal silhouette within normal limits. No evidence of pleural effusion or pneumothorax. CONCLUSION: No acute cardiopulmonary disease identified. Upper lung zone calcifications again noted. Gulshan Torres MD on October 07, 2017 at 4:21 Board Certified Radiologist. This report was verified electronically.
[2017-10-07 07:30] LABS: INTERNATIONAL NORMALIZED RATIO 1.2 RATIO; PROTHROMBIN TIME - PATIENT 11.7 SEC (9.8-11.6)
[2017-10-07 08:15] VITALS: BP 165/105; PULSE 108; RESP 20; O2SAT 98
[2017-10-07] MEDS ORDERED: ONDANSETRON ODT 4 MG TAB PO ONE (08:30)
[2017-10-07] MEDS ORDERED: LORazepam 2 MG/ML VIAL IM ONE (08:30)
[2017-10-07] MEDS ORDERED: KETOROLAC TROMETHAMINE 60 MG/2 ML (IM) VIAL IM ONE (11:45)
[2017-10-07 12:18] VITALS: BP 138/96; PULSE 93; RESP 18; O2SAT 96
--- NOTE | 2017-10-07 14:02 | PD ---
History of Present Illness Chief Complaint: Psychiatric Symptoms Time Seen by Provider: 13:45 Travel History International Travel<30 Days: No Contact w/Intl Traveler<30days: No Known affected area: No Legal Status Legal Status: Rod Act Rod Act Signed By: Shobha Will History of Present Illness: 52-year-old male became intoxicated last night with an alcohol level over 300. Currently he is no longer intoxicated. He denies any suicidal or homicidal ideation, plan or intent. He has no psychotic symptoms and no cognitive deficits. He is verbally mian for safety and he is competent to do so. He would like to go home. PFSH Past Medical History Arthritis: Yes (RA) Cardiovascular Problems: Yes (HTN) Diminished Hearing: No GERD: Yes Hepatitis: Yes (B + C) Pancreatitis: Yes Ulcer: Yes Psychiatric History Psychiatric History Hx Psychiatric Treatment: PATIENT DENIES History of Inpatient Treatment: No Guns or firearms in home: No Social History Hx Alcohol Use: Yes (DAILY) Hx Tobacco Use: Yes (10/03 PPD) Hx Substance Use: Yes Substance Use Type: Alcohol Hx of Substance Use Treatment: Yes Allergies-Medications (Allergen,Severity, Reaction): Coded Allergies: Penicillins (Verified Allergy, Severe, 10/06/17) prednisone (Verified Allergy, Severe, rash, 10/06/17) Reported Meds & Prescriptions Reported Meds & Active Scripts Active Reported Protonix (Pantoprazole Sodium) 40 Mg Tab 40 Mg PO DAILY Review of Systems Except as stated in HPI: all other systems reviewed are Neg Mental Status Examination Appearance: Appropriate Consciousness: Alert Orientation: x4 Motor Activity: Normal gait Speech: Unremarkable Language: Adequate Fund of Knowledge: Adequate Attention and Concentration: Adequate Memory: Unremarkable Mood: Appropriate Affect: Appropriate Thought Process & Associations: Intact Thought Content: Appropriate Hallucination Type: None Delusion Type: None Suicidal Ideation: No Suicidal Plan: No Suicidal Intention: No Homicidal Ideation: No Homicidal Plan: No Homicidal Intention: No Insight: Adequate Judgment: Adequate MDM Medical Decision Making Medical Record Reviewed: Yes Assessment/Plan Patient interviewed at bedside. Electronic medical record reviewed. Case discussed with nurse Galo. Patient does not meet criteria for involuntary hospitalization and does not meet criteria for Rod act. He is verbally mian for safety and he is competent to do so. He has been treated for alcoholism previously and he is not interested in returning to [facility]. Orders Orders Complete Blood Count With Diff (10/06/17 17:22) Comprehensive Metabolic Panel (10/06/17 17:22) Urinalysis - C+S If Indicated (10/06/17:22) Psych Screen (10/06/17:) Drug Screen, Random Urine (10/06/17 17:22) Acetaminophen (Tylenol) (10/06/17 18:30) Alcohol (Ethanol) (10/06/17 18:28) Lorazepam (Ativan) (10/06/17 21:30) Lorazepam Inj (Ativan Inj) (10/06/17 21:30) Lorazepam (Ativan) (10/06/17 21:30) Lorazepam Inj (Ativan Inj) (10/06/17 21:30) Lorazepam Inj (Ativan Inj) (10/06/17 21:30) Lorazepam Inj (Ativan Inj) (10/06/17 21:30) Flumazenil Inj (Romazicon Inj) (10/06/17 21:30) Ckmb (Isoenzyme) Profile (10/07/17 04:03) Magnesium (Mg) (10/07/17 04:03) Prothrombin Time / Inr (Pt) (10/07/17 04:03) Act Partial Throm Time (Ptt) (10/07/17 04:03) Troponin I (10/07/17 04:03) Chest, Single Ap (10/07/17 04:03) Aspirin Chew (Aspirin Chew) (10/07/17 04:15) Al-Mag Hy-Si 40-40-4 Mg/Ml Liq (Mag-Al P (10/07/17 04:15) Lidocaine 2% Viscous (Xylocaine 2% Visco (10/07/17 04:15) CKMB (10/06/17 17:18) CKMB% (10/06/17 17:18) Diet Regular Basic (10/07/17 Breakfast) Lorazepam Inj (Ativan Inj) (10/07/17 08:30) Ondansetron Odt (Zofran Odt) (10/07/17 08:30) Lipase (10/07/17 11:42) Ketorolac Inj (Toradol Inj) (10/07/17 11:45) Diet Regular Basic (10/07/17 Lunch) Results Vital Signs Date Time Temp Pulse Resp B/P (MAP) Pulse Ox O2 Delivery O2 Flow Rate FiO2 10/07/17 12:18 93 18 138/96 (110) 96 10/07/17 08:15 108 20 165/105 (125) 98 Room Air 10/07/17 04:00 98.7 110 20 178/102 (127) 96 Room Air 10/06/17 22:00 98.8 87 129/71 (90) 99 Room Air 10/06/17 19:30 98.9 93 17 127/82 (97) 98 Room Air 10/06/17 16:54 98.0 99 18 131/85 (100) 96 Laboratory Tests Test 10/06/17 17:18 10/06/17 17:20 10/06/17 17:39 10/07/17 06:49 White Blood Count 4.0 Red Blood Count 5.34 Hemoglobin 16.9 Hematocrit 51.5 Mean Corpuscular Volume 96.5 Mean Corpuscular Hemoglobin 31.8 Mean Corpuscular Hemoglobin Concent 32.9 Red Cell Distribution Width 16.1 Platelet Count 184 Mean Platelet Volume 7.3 Neutrophils (%) (Auto) 36.7 Lymphocytes (%) (Auto) 49.6 Monocytes (%) (Auto) 7.2 Eosinophils (%) (Auto) 3.5 Basophils (%) (Auto) 3.0 Neutrophils # (Auto) 1.5 Lymphocytes # (Auto) 2.0 Monocytes # (Auto) 0.3 Eosinophils # (Auto) 0.1 Basophils # (Auto) 0.1 CBC Comment DIFF FINAL Differential Comment Blood Urea Nitrogen 8 Creatinine 0.80 Random Glucose 152 Total Protein 8.9 Albumin 4.4 Calcium Level 9.1 Alkaline Phosphatase 93 Aspartate Amino Transf (AST/SGOT) 164 Alanine Aminotransferase (ALT/SGPT) 55 Total Bilirubin 0.6 Sodium Level 146 Potassium Level 3.8 Chloride Level 108 Carbon Dioxide Level 29.3 Anion Gap 9 Estimat Glomerular Filtration Rate 102 Magnesium Level 2.1 Total Creatine Kinase 123 Creatine Kinase MB 1.4 Troponin I LESS THAN 0.02 Urine Color LIGHT-YELLOW Urine Turbidity CLEAR Urine pH 5.5 Urine Specific [place] 1.003 Urine Protein NEG Urine Glucose (UA) TRACE Urine Ketones NEG Urine Occult Blood NEG Urine Nitrite NEG Urine Bilirubin NEG Urine Urobilinogen LESS THAN 2.0 Urine Leukocyte Esterase NEG Urine WBC LESS THAN 1 Microscopic Urinalysis Comment CULT NOT INDICATED Urine Opiates Screen NEG Urine Barbiturates Screen NEG Urine Amphetamines Screen NEG Urine Benzodiazepines Screen NEG Urine Cocaine Screen NEG Urine Cannabinoids Screen NEG Ethyl Alcohol Level 319 Prothrombin Time 11.7 Prothromb Time International Ratio 1.2 Activated Partial Thromboplast Time 22.1 Test 10/07/17 12:35 Lipase 176 Diagnosis Primary Impression: Alcohol abuse Condition: Stable Canelo Cruz MD Oct 07, 2017 14:02
--- NOTE | 2017-10-07 14:40 | PD ---
Physical Exam Time Seen by Provider: 14:[address] Cruz has evaluated the patient, lifted Rod act and cleared the patient for discharge. Data Data Last Documented VS Vital Signs Date Time Temp Pulse Resp B/P (MAP) Pulse Ox O2 Delivery O2 Flow Rate FiO2 10/07/17 12:18 93 18 138/96 (110) 96 10/07/17 08:15 Room Air 10/07/17 04:00 98.7 Orders Orders Complete Blood Count With Diff (10/06/17 17:22) Comprehensive Metabolic Panel (10/06/17 17:22) Urinalysis - C+S If Indicated (10/06/17 17:22) Psych Screen (10/06/17 17:22) Drug Screen, Random Urine (10/06/17 17:22) Acetaminophen (Tylenol) (10/06/17 18:30) Alcohol (Ethanol) (10/06/17 18:28) Lorazepam (Ativan) (10/06/17 21:30) Lorazepam Inj (Ativan Inj) (10/06/17 21:30) Lorazepam (Ativan) (10/06/17 21:30) Lorazepam Inj (Ativan Inj) (10/06/17 21:30) Lorazepam Inj (Ativan Inj) (10/06/17 21:30) Lorazepam Inj (Ativan Inj) (10/06/17 21:30) Flumazenil Inj (Romazicon Inj) (10/06/17 21:30) Ckmb (Isoenzyme) Profile (10/07/17 04:03) Magnesium (Mg) (10/07/17 04:03) Prothrombin Time / Inr (Pt) (10/07/17 04:03) Act Partial Throm Time (Ptt) (10/07/17 04:03) Troponin I (10/07/17 04:03) Chest, Single Ap (10/07/17 04:03) Aspirin Chew (Aspirin Chew) (10/07/17 04:15) Al-Mag Hy-Si 40-40-4 Mg/Ml Liq (Mag-Al P (10/07/17 04:15) Lidocaine 2% Viscous (Xylocaine 2% Visco (10/07/17 04:15) CKMB (10/06/17 17:18) CKMB% (10/06/17 17:18) Diet Regular Basic (10/07/17 Breakfast) Lorazepam Inj (Ativan Inj) (10/07/17 08:30) Ondansetron Odt (Zofran Odt) (10/07/17 08:30) Lipase (10/07/17 11:42) Ketorolac Inj (Toradol Inj) (10/07/17 11:45) Diet Regular Basic (10/07/17 Lunch) Labs Laboratory Tests Test 10/06/17 17:18 10/06/17 17:20 10/06/17 17:39 10/07/17 06:49 White Blood Count 4.0 TH/MM3 Red Blood Count 5.34 MIL/MM3 Hemoglobin 16.9 GM/DL Hematocrit 51.5 % Mean Corpuscular Volume 96.5 FL Mean Corpuscular Hemoglobin 31.8 PG Mean Corpuscular Hemoglobin Concent 32.9 % Red Cell Distribution Width 16.1 % Platelet Count 184 TH/MM3 Mean Platelet Volume 7.3 FL Neutrophils (%) (Auto) 36.7 % Lymphocytes (%) (Auto) 49.6 % Monocytes (%) (Auto) 7.2 % Eosinophils (%) (Auto) 3.5 % Basophils (%) (Auto) 3.0 % Neutrophils # (Auto) 1.5 TH/MM3 Lymphocytes # (Auto) 2.0 TH/MM3 Monocytes # (Auto) 0.3 TH/MM3 Eosinophils # (Auto) 0.1 TH/MM3 Basophils # (Auto) 0.1 TH/MM3 CBC Comment DIFF FINAL Differential Comment Blood Urea Nitrogen 8 MG/DL Creatinine 0.80 MG/DL Random Glucose 152 MG/DL Total Protein 8.9 GM/DL Albumin 4.4 GM/DL Calcium Level 9.1 MG/DL Alkaline Phosphatase 93 U/L Aspartate Amino Transf (AST/SGOT) 164 U/L Alanine Aminotransferase (ALT/SGPT) 55 U/L Total Bilirubin 0.6 MG/DL Sodium Level 146 MEQ/L Potassium Level 3.8 MEQ/L Chloride Level 108 MEQ/L Carbon Dioxide Level 29.3 MEQ/L Anion Gap 9 MEQ/L Estimat Glomerular Filtration Rate 102 ML/MIN Magnesium Level 2.1 MG/DL Total Creatine Kinase 123 U/L Creatine Kinase MB 1.4 NG/ML Troponin I LESS THAN 0.02 NG/ML Urine Color LIGHT-YELLOW Urine Turbidity CLEAR Urine pH 5.5 Urine Specific [place] 1.003 Urine Protein NEG mg/dL Urine Glucose (UA) TRACE mg/dL Urine Ketones NEG mg/dL Urine Occult Blood NEG Urine Nitrite NEG Urine Bilirubin NEG Urine Urobilinogen LESS THAN 2.0 MG/DL Urine Leukocyte Esterase NEG Urine WBC LESS THAN 1 /hpf Microscopic Urinalysis Comment CULT NOT INDICATED Urine Opiates Screen NEG Urine Barbiturates Screen NEG Urine Amphetamines Screen NEG Urine Benzodiazepines Screen NEG Urine Cocaine Screen NEG Urine Cannabinoids Screen NEG Ethyl Alcohol Level 319 MG/DL Prothrombin Time 11.7 SEC Prothromb Time International Ratio 1.2 RATIO Activated Partial Thromboplast Time 22.1 SEC Test 10/07/17 12:35 Lipase 176 U/L MDM Supervised Visit with JAMES: No Narrative Course Dr. Cruz has evaluated the patient, lifted [facility] and cleared the patient for discharge. Patient contracts safety. Denies suicidal or homicidal ideations. Patient will be provided community resource packet to [facility] for follow-up. Has friends and family for support. Patient was medically cleared by alternate provider prior to psych screening. Patient has been evaluated by psychiatry and and is now cleared for discharge. Diagnosis Primary Impression: Alcohol abuse Referrals: SHERIE (Out patient) [facility] Primary Care Physician Psychiatrist Vivek REHMAN Behavior[facility] Patient Instructions: Abuse of Alcohol (ED), Alcohol Dependence (ED), Alcohol Intoxication (ED), General Instructions Additional Instruction: Contract safety to your self and others Stop Drinking alcohol Follow-up with psychiatry Follow-up with primary care provider Follow-up with [facility] Return to the emergency department immediately with worsening of symptoms Med/Other Pt SpecificInfo: No Change to Meds, No Meds Exist/No RX given Disposition: 01 DISCHARGE HOME Condition: Stable Kylee Nicholas Oct 07, 2017 14:40
[2017-10-07 14:45] VITALS: BP 165/100; PULSE 99; RESP 18; O2SAT 98
== END 2017-10-07 16:05 | disposition home or self-care (01) ==
LOC: NEDAMB 16:31 → NEPJ 10-07 16:05
DX: F10.129 Alcohol abuse with intoxication, unspecified (principal); F43.25 Adjustment disorder with mixed disturbance of emotions and conduct; R07.9 Chest pain, unspecified; K21.9 Gastro-esophageal reflux disease without esophagitis; F17.200 Nicotine dependence, unspecified, uncomplicated; Y90.8 Blood alcohol level of 240 mg/100 ml or more; Z79.899 Other long term (current) drug therapy
CPT/HCPCS: 71045; 80053; 80307; 81001; 82550; 82552; 83690; 83735; 84484; 85025; 85610; 85730; 96372; 96374; 96376; 99284; J1885; J2060

== ENCOUNTER 2017-10-08 21:36 | Emergency (ER) | payer OTHER ==
[~2017-10-08 21:36] MED LIST changes: -CARA1TAB6 PO
[2017-10-08 21:52] VITALS: BP 142/90; PULSE 92; RESP 16; O2SAT 98
--- NOTE | 2017-10-08 21:58 | PD ---
HPI Chief Complaint: intoxication Time Seen by Provider: 21:51 Travel History International Travel<30 days: No Contact w/Intl Traveler<30days: No History of Present Illness HPI 52-year-old man, here under a [place] act for being intoxicated at home and not staying his house. Patient complains of abdominal pain related to chronic pancreatitis. No other complaints. History Past Medical History Narrative Medical Chronic pancreatitis, hepatitis, alcoholism Social History Alcohol Use: Yes (DAILY) Tobacco Use: Yes (1/2 PPD) Allergies-Medications (Allergen,Severity, Reaction): Coded Allergies: Penicillins (Verified Allergy, Severe, 10/06/17) prednisone (Verified Allergy, Severe, rash, 10/06/17) Reported Meds & Prescriptions Reported Meds & Active Scripts Active Reported Protonix (Pantoprazole Sodium) 40 Mg Tab 40 Mg PO DAILY Review of Systems Except as stated in HPI: all other systems reviewed are Neg Physical Exam Narrative GENERAL: 52-year-old man, slurred speech. No acute distress. SKIN: Focused skin assessment warm/dry. HEAD: No obvious trauma. EYES: Pupils equal and round. No scleral icterus. No injection or drainage. ENT: No nasal bleeding or discharge. Mucous membranes pink and moist. NECK: Trachea midline. No JVD. CARDIOVASCULAR: Warm and well perfused. RESPIRATORY: No respiratory distress. MUSCULOSKELETAL: No obvious deformities. No clubbing. No cyanosis. No edema. NEUROLOGICAL: Awake and alert. Slurred speech. No obvious cranial nerve deficits. Motor grossly within normal limits. PSYCHIATRIC: Directable. MDM Medical Decision Making Medical Screen Exam Complete: Yes Emergency Medical Condition: Yes Differential Diagnosis Alcohol intoxication, cold injury, psychiatric illness, illicit drug use Narrative Course 52-year-old man here for alcohol intoxication. He'll be monitored until sober and then allowed to be discharged. Here multiple times for the same. Diagnosis Primary Impression: Alcohol intoxication Additional Instructions: Do not drink alcohol to excess. Med/Other Pt SpecificInfo: No Change to Meds Disposition: 01 DISCHARGE HOME Condition: Stable Luiz Cross MD Oct 08, 2017 21:58
[2017-10-09] MEDS ORDERED: IBUPROFEN 800 MG TAB PO ONE (04:30)
== END 2017-10-09 07:36 | disposition home or self-care (01) ==
LOC: NEPD 21:36
DX: F10.129 Alcohol abuse with intoxication, unspecified (principal); K86.1 Other chronic pancreatitis; K75.9 Inflammatory liver disease, unspecified; F17.200 Nicotine dependence, unspecified, uncomplicated; Z79.899 Other long term (current) drug therapy; Z88.0 Allergy status to penicillin; Z88.5 Allergy status to narcotic agent
CPT/HCPCS: 99283

== ENCOUNTER 2017-10-19 20:57 | Emergency (ER) | payer OTHER ==
[2017-10-19 21:07] VITALS: BP 119/68; PULSE 71; RESP 18; TEMP 97.7; O2SAT 94
--- NOTE | 2017-10-19 23:42 | PD ---
HPI Chief Complaint: Psychiatric Symptoms Time Seen by Provider: 23:27 Travel History International Travel<30 days: No Contact w/Intl Traveler<30days: No Traveled to known affect area: No History of Present Illness HPI 52-year-old white male presents to emergency department under Rod act for psychological evaluation. This is a patient well-known to the ER staff and myself due to his long-standing history of alcohol abuse. The patient has presented this way on multiple occasions. Typically when he debora up he is discharged. The patient here denies making any suicidal statements. According to the Rod act the patient had been making suicidal suggestive statements. He has been drinking large amount of alcohol. He allegedly has not been taking his medications. The patient refutes this. She denies any suicidal homicidal ideation. No toxic ingestions. He does admit to a history of chronic alcohol abuse [facility] Past Medical History Arthritis: Yes (RA) Cardiovascular Problems: Yes (HTN) Diminished Hearing: No GERD: Yes Hepatitis: Yes (B + C) Pancreatitis: Yes Ulcer: Yes Tetanus Vaccination: Unknown Influenza Vaccination: Yes Past Surgical History Surgical History: No Previous Surgery Social History Alcohol Use: Yes (DAILY, VODKA) Tobacco Use: Yes (10/03 PPD) Substance Use: Yes Allergies-Medications (Allergen,Severity, Reaction): Coded Allergies: Penicillins (Verified Allergy, Severe, 10/19/17) prednisone (Verified Allergy, Severe, rash, 10/19/17) Reported Meds & Prescriptions Reported Meds & Active Scripts Active Reported Protonix (Pantoprazole Sodium) 40 Mg Tab 40 Mg PO DAILY Review of Systems ROS Limitations: Intoxication Psychiatric: Positive: Mood Disorder, Substance Abuse, No: Anxiety, Depression , Suicidal Ideations, Disorder of Thought, Homicidal Ideation Physical Exam Narrative GENERAL: Well-nourished, well-developed patient. Patient smells strongly of alcohol and appears heavily intoxicated. SKIN: Warm and dry. HEAD: Normocephalic and atraumatic. EYES: No scleral icterus. No injection or drainage. ENT: No nasal drainage noted. Mucous membranes pink. Airway patent. NECK: Supple, trachea midline. Moves head freely without obvious discomfort. CARDIOVASCULAR: Regular rate and rhythm without murmurs, gallops, or rubs. RESPIRATORY: Breath sounds equal bilaterally. No accessory muscle use. GASTROINTESTINAL: Abdomen soft, non-tender, nondistended. EXTREMITIES: No cyanosis or edema. BACK: Nontender without obvious deformity. No CVA tenderness. NEURO: Patient is alert and oriented. no sensorimotor deficits. Nonfocal. Slurred speech. PSYCH: No delusions. No auditory or visual hallucinations. Data Data Last Documented VS Vital Signs Date Time Temp Pulse Resp B/P (MAP) Pulse Ox O2 Delivery O2 Flow Rate FiO2 10/19/17 21:07 97.7 71 18 119/68 (85) 94 MDM Medical Decision Making Medical Screen Exam Complete: Yes Emergency Medical Condition: Yes Medical Record Reviewed: Yes Differential Diagnosis Differential diagnoses: Alcohol intoxication, substance abuse, electrolyte abnormality, malingering, depression, suicidal ideation Narrative Course This is a patient well-known to the ER staff due to alcohol abuse. He has had multiple evaluations due to his alcohol abuse and Rod acts. The patient denies any suicidal ideation. The patient will be medically cleared and will be allowed to sleep at all. In the ER and will be seen by the psychiatrist and hopes to have his Rod act lifted. This is medical clearance for psychiatric admission, alcohol abuse with intoxication Diagnosis Primary Impression: Medical clearance for psychiatric admission Additional Impression: Alcohol abuse with intoxication Condition: Stable Kalin Mcmanus Oct 19, 2017 23:42
[2017-10-20 01:54] VITALS: BP 93/58; PULSE 79; RESP 16; O2SAT 94
[2017-10-20 05:15] VITALS: BP 142/86; PULSE 94; RESP 19; O2SAT 97
[2017-10-20 06:38] VITALS: BP 139/77; PULSE 94; RESP 18; O2SAT 97
[2017-10-20] MEDS ORDERED: ACETAMINOPHEN 325 MG TAB PO ONE (09:45)
[2017-10-20 10:14] VITALS: BP 143/93; PULSE 93; RESP 16; O2SAT 96
[2017-10-20] MEDS ORDERED: LORazepam 1 MG TAB PO PRN (10:15)
[2017-10-20] MEDS ORDERED: LORazepam 2 MG/ML VIAL IV PUSH PRN ×4 (10:15)
[2017-10-20] MEDS ORDERED: LORazepam 2 MG TAB PO PRN (10:15)
[2017-10-20] MEDS ORDERED: FLUMAZENIL 0.5 MG/5 ML VIAL IV PUSH PRN (10:15)
[2017-10-20 10:25] VITALS: BP 135/83; PULSE 107; RESP 20
[2017-10-20] MEDS ORDERED: CLON0.1T PO (12:28)
--- NOTE | 2017-10-20 12:32 | PD ---
History of Present Illness Chief Complaint: Psychiatric Symptoms Time Seen by Provider: 12:00 Travel History International Travel<30 Days: No Contact w/Intl Traveler<30days: No Known affected area: No Legal Status Legal Status: Rod Act Rod Act Signed By: Shobha Will History of Present Illness: 52-year-old male seen under a Rod act for suicidal ideation. Patient reports he was intoxicated yesterday and this is why he made suicidal threats. He is no longer intoxicated and he denies any suicidal or homicidal ideation plan or intent. His cognition is intact and he has no psychotic symptoms. He is verbally mian for safety and he is competent to do so. He is requesting a prescription for clonidine to assist with his anxiety. Informed consent was given. [facility] Past Medical History Arthritis: Yes (RA) Cardiovascular Problems: Yes (HTN) Diminished Hearing: No GERD: Yes Hepatitis: Yes (B + C) Pancreatitis: Yes Ulcer: Yes Tetanus Vaccination: Unknown Influenza Vaccination: Yes Past Surgical History Surgical History: No Previous Surgery Psychiatric History Psychiatric History Hx Psychiatric Treatment: PATIENT DENIES PATIENT WAS SEEN October AND FOR ALCOHOL CONSUMPTION. History of Inpatient Treatment: No Guns or firearms in home: No Social History Hx Alcohol Use: Yes (DAILY, VODKA) Hx Tobacco Use: Yes (1/2 PPD) Hx Substance Use: Yes Substance Use Type: Alcohol Hx of Substance Use Treatment: Yes Allergies-Medications (Allergen,Severity, Reaction): Coded Allergies: Penicillins (Verified Allergy, Severe, 10/19/17) prednisone (Verified Allergy, Severe, rash, 10/19/17) Reported Meds & Prescriptions Reported Meds & Active Scripts Active Clonidine (Clonidine HCl) 0.1 Mg Tab 0.1 Mg PO BID Reported Protonix (Pantoprazole Sodium) 40 Mg Tab 40 Mg PO DAILY Review of Systems Psychiatric: COMPLAINS OF: Anxiety Except as stated in HPI: all other systems reviewed are Neg Mental Status Examination Appearance: Appropriate Consciousness: Alert Orientation: x4 Motor Activity: Normal gait Speech: Unremarkable Language: Adequate Fund of Knowledge: Adequate Attention and Concentration: Adequate Memory: Unremarkable Mood: Appropriate Affect: Appropriate Thought Process & Associations: Intact Thought Content: Appropriate Hallucination Type: None Delusion Type: None Suicidal Ideation: No Suicidal Plan: No Suicidal Intention: No Homicidal Ideation: No Homicidal Plan: No Homicidal Intention: No Insight: Adequate Judgment: Adequate MDM Medical Decision Making Medical Record Reviewed: Yes Assessment/Plan Patient interviewed at bedside. Medical record reviewed. Case discussed with nurse Lilian. Patient does not meet Rod act criteria and does not meet criteria for involuntary psychiatric hospitalization. He is verbally mian for safety and wants to go home. Orders Orders Psych Screen (10/19/17 23:43) Alcohol (Ethanol) (10/20/17 04:48) Diet Regular Basic (10/20/17 Breakfast) Acetaminophen (Tylenol) (10/20/17 09:45) Alcohol Withdrawal Asmt-Ciwa Q4HX18 (10/20/17 10:03) Flumazenil Inj (Romazicon Inj) (10/20/17 10:15) Lorazepam (Ativan) (10/20/17 10:15) Lorazepam Inj (Ativan Inj) (10/20/17 10:15) Lorazepam (Ativan) (10/20/17 10:15) Lorazepam Inj (Ativan Inj) (10/20/17 10:15) Lorazepam Inj (Ativan Inj) (10/20/17 10:15) Lorazepam Inj (Ativan Inj) (10/20/17 10:15) Diet Regular Basic (10/20/17 Lunch) Results Vital Signs Date Time Temp Pulse Resp B/P (MAP) Pulse Ox O2 Delivery O2 Flow Rate FiO2 10/20/17 10:25 107 20 135/83 (100) 10/20/17 10:14 93 16 143/93 (110) 96 Room Air 10/20/17 06:38 94 18 139/77 (97) 97 Room Air 10/20/17 05:15 94 19 142/86 (104) 97 Room Air 10/20/17 01:54 79 16 93/58 (70) 94 Room Air 10/19/17 21:07 97.7 71 18 119/68 (85) 94 Laboratory Tests Test 10/20/17 05:55 Ethyl Alcohol Level 209 Diagnosis Primary Impression: Alcohol abuse Prescriptions Clonidine (Clonidine) 0.1 Mg Tab 0.1 MG PO BID for Anxiety, #15 TAB 0 Refills Prov: Cruz,Canelo A. MD 10/20/17 Condition: Stable Canelo Cruz MD Oct 20, 2017 12:32
--- NOTE | 2017-10-20 13:39 | PD ---
Physical Exam Date Seen by Provider: Oct 20, 2017 Time Seen by Provider: 13:38 Narrative Patient previously medically cleared for psychiatric evaluation. Patient was seen by Dr. Cruz, the psychiatrist and felt to be psychiatrically stable for discharge. He stable at this time discharge. Patient is to follow-up per Dr. Cruz's plan. Data Data Last Documented VS Vital Signs Date Time Temp Pulse Resp B/P (MAP) Pulse Ox O2 Delivery O2 Flow Rate FiO2 10/20/17 13:13 10/20/17 10:25 107 20 10/20/17 10:14 96 Room Air 10/19/17 21:07 97.7 Orders Orders Psych Screen (10/19/17 23:43) Alcohol (Ethanol) (10/20/17 04:48) Diet Regular Basic (10/20/17 Breakfast) Acetaminophen (Tylenol) (10/20/17 09:45) Alcohol Withdrawal Asmt-Ciwa Q4HX18 (10/20/17 10:03) Flumazenil Inj (Romazicon Inj) (10/20/17 10:15) Lorazepam (Ativan) (10/20/17 10:15) Lorazepam Inj (Ativan Inj) (10/20/17 10:15) Lorazepam (Ativan) (10/20/17 10:15) Lorazepam Inj (Ativan Inj) (10/20/17 10:15) Lorazepam Inj (Ativan Inj) (10/20/17 10:15) Lorazepam Inj (Ativan Inj) (10/20/17 10:15) Diet Regular Basic (10/20/17 Lunch) Labs Laboratory Tests Test 10/20/17 05:55 Ethyl Alcohol Level 209 MG/DL [facility] [place] Medical Record Reviewed: Yes Supervised Visit with JAMES: Yes Narrative Course Patient previously medically cleared for psychiatric evaluation. Patient was seen by Dr. Cruz, the psychiatrist and felt to be psychiatrically stable for discharge. He stable at this time discharge. Patient is to follow-up per Dr. Cruz's plan. Diagnosis Primary Impression: Alcohol abuse Patient Instructions: General Instructions Departure Forms: Tests/Procedures Scripts Clonidine (Clonidine) 0.1 Mg Tab 0.1 MG PO BID for Anxiety, #15 TAB 0 Refills Prov: Canelo Cruz MD 10/20/17 Disposition: 01 DISCHARGE HOME Condition: Stable Estuardo Bates Oct 20, 2017 13:39
== END 2017-10-20 13:54 | disposition home or self-care (01) ==
LOC: NEDAMB 20:57 → NEPJ 10-20 13:54
DX: F10.129 Alcohol abuse with intoxication, unspecified (principal); F41.9 Anxiety disorder, unspecified; K21.9 Gastro-esophageal reflux disease without esophagitis; F17.200 Nicotine dependence, unspecified, uncomplicated; Y90.7 Blood alcohol level of 200-239 mg/100 ml; Z79.899 Other long term (current) drug therapy
CPT/HCPCS: 80307; 99284

== ENCOUNTER 2017-10-26 21:14 | Emergency (ER) | payer OTHER ==
[~2017-10-26 21:14] MED LIST changes: +CLON0.1T PO
[2017-10-26 21:45] VITALS: BP 129/75; PULSE 106; RESP 16; TEMP 97.6; O2SAT 95
[2017-10-26] MEDS ORDERED: DIAZEPAM 10 MG TAB PO ONE (22:45)
--- NOTE | 2017-10-27 00:23 | PD ---
HPI Chief Complaint: Psychiatric Symptoms Time Seen by Provider: 22:30 Travel History International Travel<30 days: No Contact w/Intl Traveler<30days: No Traveled to known affect area: No History of Present Illness HPI The patient's 52-year-old and arrives as a [place] act. He was punching the santos at home. He was reported to have been taking his head against the wall of the police car. He denies any intent to harm others or himself. He reports drinking alcohol every day and desires to quit drinking however has run into difficulty finding a facility that'll admit him for inpatient detox. PFS Past Medical History Arthritis: Yes (RA) Cardiovascular Problems: Yes (HTN) Diminished Hearing: No GERD: Yes Hepatitis: Yes (B + C) Hypertension: Yes Pancreatitis: Yes Ulcer: Yes Past Surgical History Surgical History: No Previous Surgery Social History Alcohol Use: Yes (DAILY, VODKA) Tobacco Use: Yes (10/03 PPD) Substance Use: No Allergies-Medications (Allergen,Severity, Reaction): Coded Allergies: Penicillins (Verified Allergy, Severe, 10/26/17) prednisone (Verified Allergy, Severe, rash, 10/26/17) Reported Meds & Prescriptions Reported Meds & Active Scripts Active No Active Prescriptions or Reported Medications Review of Systems Except as stated in HPI: all other systems reviewed are Neg General / Constitutional: No: Fever Physical Exam Narrative GENERAL: 52-year-old male well-nourished well-developed SKIN: Warm and dry. HEAD: Atraumatic. Normocephalic. EYES: Pupils equal and round. No scleral icterus. No injection or drainage. ENT: No nasal bleeding or discharge. Mucous membranes pink and moist. NECK: Trachea midline. No JVD. CARDIOVASCULAR: Regular rate and rhythm. RESPIRATORY: No accessory muscle use. Clear to auscultation. Breath sounds equal bilaterally. GASTROINTESTINAL: Abdomen soft, non-tender, nondistended. Hepatic and splenic margins not palpable. MUSCULOSKELETAL: Extremities without clubbing, cyanosis, or edema. No obvious deformities. NEUROLOGICAL: Awake and alert. No obvious cranial nerve deficits. Motor grossly within normal limits. Five out of 5 muscle strength in the arms and legs. Normal speech. PSYCHIATRIC: Affect is flat. Patient denies suicidal/homicidal ideation. Data Data Last Documented VS Vital Signs Date Time Temp Pulse Resp B/P (MAP) Pulse Ox O2 Delivery O2 Flow Rate FiO2 10/26/17 21:45 97.6 106 16 129/75 (93) 95 Orders Orders Diazepam (Valium) (10/26/17 22:45) Drug Screen, Random Urine (10/26/17 22:51) Alcohol (Ethanol) (10/26/17 22:51) MDM Medical Decision Making Medical Screen Exam Complete: Yes Emergency Medical Condition: Yes Medical Record Reviewed: Yes Differential Diagnosis Altered mental status/psychosis due to infection/environmental exposure/ metabolic abnormality, polypharmacy, alcohol abuse/intoxication, illicit or prescribed drug abuse, malingering/secondary gain, non-organic psychiatric disease Narrative Course Patient had blood work completed approximately 3 weeks prior and multiple times previously with normal results. The blood work will be deferred this time. The patient is medically clear for psychiatric evaluation. Diagnosis Primary Impression: Medical clearance for psychiatric admission Scripts No Active Prescriptions or Reported Meds Juan Carlos Schmitz MD Oct 27, 2017 00:23
[2017-10-27] MEDS ORDERED: IBUPROFEN 600 MG TAB PO ONE (01:30)
[2017-10-27 06:13] VITALS: BP 135/89; PULSE 108; RESP 18; O2SAT 98
[2017-10-27] MEDS ORDERED: ONDANSETRON ODT 4 MG TAB PO ONE (08:15)
[2017-10-27] MEDS ORDERED: LORazepam 2 MG TAB PO PRN (08:15)
[2017-10-27] MEDS ORDERED: LORazepam 1 MG TAB PO PRN (08:15)
[2017-10-27] MEDS ORDERED: LORazepam 2 MG/ML VIAL IV PUSH PRN ×2 (08:15)
[2017-10-27] MEDS ORDERED: FLUMAZENIL 0.5 MG/5 ML VIAL IV PUSH PRN (08:15)
[2017-10-27] MEDS: LORazepam 2 MG/ML VIAL IV PUSH PRN ×2 (16:00→20:25)
[2017-10-27 16:50] VITALS: BP 125/90; PULSE 85; RESP 18; O2SAT 98
[2017-10-27 22:39] VITALS: BP 123/74; PULSE 84; RESP 16; O2SAT 99
[2017-10-28] MEDS: LORazepam 2 MG/ML VIAL IV PUSH PRN ×2 (05:47→08:20)
[2017-10-28 06:30] VITALS: BP 164/87; PULSE 96; RESP 18; O2SAT 98
== END 2017-10-28 08:38 ==
LOC: NEDAMB 21:14 → NEPJ 10-28 08:38
DX: F91.9 Conduct disorder, unspecified (principal); I10 Essential (primary) hypertension; K21.9 Gastro-esophageal reflux disease without esophagitis; K85.90 Acute pancreatitis without necrosis or infection, unspecified; F17.200 Nicotine dependence, unspecified, uncomplicated
CPT/HCPCS: 80307; 96374; 96375; 96376; 99284; J2060

== ENCOUNTER 2017-12-12 16:11 | Emergency (ER) | payer SELFPAY ==
[~2017-12-12] VITALS: Ht 198.1 cm; Wt 84.5 kg
[2017-12-12 16:31] VITALS: BP 167/100; PULSE 94; RESP 18; TEMP 97.7; O2SAT 98
[2017-12-12] MEDS ORDERED: SODIUM CHLOR 0.9% 1000 ML INJ 1,000 ML IV SCH (17:51)
--- NOTE | 2017-12-12 17:56 | PD ---
HPI Chief Complaint: Hypertension Time Seen by Provider: 17:45 Travel History International Travel<30 days: No Contact w/Intl Traveler<30days: No Traveled to known affect area: No History of Present Illness HPI Patient is a 52-year-old male admitted alcoholic presents emergency department for evaluation "high blood pressure". Patient states that he feels like his blood pressure was going high anything is going through alcohol withdrawals. He states his last drink was yesterday. Patient very vague history of present illness states he has been having some mild abdominal pain and some nausea vomiting without diarrhea. He states that he is currently trying to quit drinking and is trying to quit drinking multiple times in the past and every time he does the symptoms happen to him. He is alert and awake and oriented, denies any chest pain shortness of breath diarrhea extremity pain. Symptoms are moderate, context as above, associated with mild abdominal pain nausea without vomiting, gradually worsening PFSH Past Medical History Hx Anticoagulant Therapy: No Arthritis: Yes (RA) Cardiovascular Problems: Yes (HTN) Diminished Hearing: No GERD: Yes Hepatitis: Yes (B + C) Hypertension: Yes Pancreatitis: Yes Ulcer: Yes Social History Alcohol Use: Yes (DAILY, VODKA) Tobacco Use: Yes (/2 PPD) Substance Use: No Allergies-Medications (Allergen,Severity, Reaction): Coded Allergies: Penicillins (Verified Allergy, Severe, 12/12/17) prednisone (Verified Allergy, Severe, rash, 12/12/17) Reported Meds & Prescriptions Reported Meds & Active Scripts Active No Active Prescriptions or Reported Medications Review of Systems Except as stated in HPI: all other systems reviewed are Neg Physical Exam Narrative GENERAL: Well-developed well-nourished, exhibiting mild tremor but in no obvious distress SKIN: Focused skin assessment warm/dry. HEAD: Atraumatic. Normocephalic. EYES: Pupils equal and round. No scleral icterus. No injection or drainage. ENT: No nasal bleeding or discharge. Mucous membranes pink and moist. NECK: Trachea midline. No JVD. CARDIOVASCULAR: Regular rate and rhythm. No murmur appreciated. RESPIRATORY: No accessory muscle use. Clear to auscultation. Breath sounds equal bilaterally. GASTROINTESTINAL: Abdomen soft, non-tender, nondistended. Hepatic and splenic margins not palpable. No rebound no percussive tenderness. MUSCULOSKELETAL: No obvious deformities. No clubbing. No cyanosis. No edema. NEUROLOGICAL: Awake and alert. No obvious cranial nerve deficits. Motor grossly within normal limits. Normal speech. Alert and awake and oriented, mild coarse low frequency tremor in bilateral upper extremities. Cerebellar testing negative, no nystagmus. PSYCHIATRIC: Appropriate mood and affect; insight and judgment normal. Data Data Last Documented VS Vital Signs Date Time Temp Pulse Resp B/P (MAP) Pulse Ox O2 Delivery O2 Flow Rate FiO2 12/12/17 16:31 97.7 94 18 167/100 (122) 98 Orders Orders Basic Metabolic Panel (Bmp) (12/12/17 17:51) Complete Blood Count With Diff (12/12/17 17:51) Lipase (12/12/17 17:51) Iv Access Insert/Monitor (12/12/17 17:51) Ecg Monitoring (12/12/17 17:51) Oximetry (12/12/17 17:51) Ondansetron Inj (Zofran Inj) (12/12/17 18:00) Sodium Chlor 0.9% 1000 Ml Inj (Ns 1000 M (12/12/17 17:51) Sodium Chloride 0.9% Flush (Ns Flush) (12/12/17 18:00) Ondansetron Odt (Zofran Odt) (12/12/17 18:45) Ed Discharge Order (12/12/17 19:28) Labs Laboratory Tests Test 12/12/17 18:39 White Blood Count 3.6 TH/MM3 Red Blood Count 4.86 MIL/MM3 Hemoglobin 14.9 GM/DL Hematocrit 47.2 % Mean Corpuscular Volume 97.2 FL Mean Corpuscular Hemoglobin 30.8 PG Mean Corpuscular Hemoglobin Concent 31.6 % Red Cell Distribution Width 17.4 % Platelet Count 124 TH/MM3 Mean Platelet Volume 7.7 FL Neutrophils (%) (Auto) 54.6 % Lymphocytes (%) (Auto) 35.0 % Monocytes (%) (Auto) 5.6 % Eosinophils (%) (Auto) 1.2 % Basophils (%) (Auto) 3.6 % Neutrophils # (Auto) 2.0 TH/MM3 Lymphocytes # (Auto) 1.3 TH/MM3 Monocytes # (Auto) 0.2 TH/MM3 Eosinophils # (Auto) 0.0 TH/MM3 Basophils # (Auto) 0.1 TH/MM3 CBC Comment DIFF FINAL Differential Comment Blood Urea Nitrogen 8 MG/DL Creatinine 0.67 MG/DL Random Glucose 85 MG/DL Calcium Level 9.1 MG/DL Sodium Level 136 MEQ/L Potassium Level 4.7 MEQ/L Chloride Level 102 MEQ/L Carbon Dioxide Level 26.9 MEQ/L Anion Gap 7 MEQ/L Estimat Glomerular Filtration Rate 125 ML/MIN Lipase 123 U/L MDM Medical Decision Making Medical Screen Exam Complete: Yes Emergency Medical Condition: Yes Differential Diagnosis Alcoholism, mild alcohol withdrawal, delirium tremens has been excluded clinically, pancreatitis, acute abdomen unlikely. Narrative Course Patient room to the emergency department, was given fluids Zofran, offered pain medicine and declined. Later in his encounter he asked for something for the shakes. He is not febrile not hypertensive his labs are reassuring. There is no indication for CAT scan of this man with a benign abdomen. He is alert and awake and oriented and there is no delirium in this patient, his symptoms could represent a mild alcohol withdrawal but he does state that he drank yesterday. Either way his symptoms do not require further workup in the emergency department and he is stable for discharge. He was urged to follow-up with [facility] for further treatment of his alcoholism and I discussed this with him that he needs to follow-up. Diagnosis Primary Impression: Abdominal discomfort Additional Impression: Alcoholism Referrals: [facility] Patient Instructions: Abuse of Alcohol (DC), General Instructions Scripts No Active Prescriptions or Reported Meds Disposition: 01 DISCHARGE HOME Condition: Stable Behzad Gomez MD Dec 12, 2017 17:56
[2017-12-12] MEDS ORDERED: ONDANSETRON HCL 4 MG/2 ML VIAL IVP ONE (18:00)
[2017-12-12] MEDS ORDERED: SODIUM CHLORIDE 0.9% FLUSH 10 ML FLUSH IV FLUSH PRN (18:00)
[2017-12-12] MEDS ORDERED: ONDANSETRON ODT 4 MG TAB PO ONE (18:45)
[2017-12-12 18:52] LABS: BASOPHIL # 0.1 TH/MM3 (0-0.2); BASOPHIL % 3.6 % (0.0-2.0); EOSINOPHIL % 1.2 % (0.0-4.0); HEMATOCRIT 47.2 % (39.0-51.0); HEMOGLOBIN 14.9 GM/DL (13.0-17.0); LYMPHOCYTE # 1.3 TH/MM3 (1.0-4.8); MEAN CELL VOLUME 97.2 FL (80.0-100.0); MEAN CORPUSCULAR HEMOGLOBIN 30.8 PG (27.0-34.0); MEAN CORPUSCULAR HGB CONC 31.6 % (32.0-36.0); MEAN PLATELET VOLUME 7.7 FL (7.0-11.0); MONO % 5.6 % (0.0-8.0); MONOCYTE # 0.2 TH/MM3 (0-0.9); NEUT % 54.6 % (16.0-70.0); PLATELET COUNT 124 TH/MM3 (150-450); RED BLOOD COUNT 4.86 MIL/MM3 (4.50-5.90); RED CELL DISTRIBUTION WIDTH 17.4 % (11.6-17.2); WHITE BLOOD COUNT 3.6 TH/MM3 (4.0-11.0)
[2017-12-12 19:11] LABS: BICARBONATE 26.9 MEQ/L (21.0-32.0); CALCIUM 9.1 MG/DL (8.5-10.1)
[2017-12-12 19:14] LABS: CREATININE 0.67 MG/DL (0.60-1.30)
== END 2017-12-12 19:50 | disposition home or self-care (01) ==
LOC: PHEFT 16:11
DX: R10.9 Unspecified abdominal pain (principal); F10.20 Alcohol dependence, uncomplicated; F17.210 Nicotine dependence, cigarettes, uncomplicated
CPT/HCPCS: 80048; 83690; 85025; 99283

== ENCOUNTER 2017-12-14 18:50 | Emergency (ER) | payer SELFPAY ==
[2017-12-14 19:03] VITALS: BP 129/86; PULSE 103; RESP 18; TEMP 97.5; O2SAT 99
--- NOTE | 2017-12-14 21:58 | PD ---
HPI Chief Complaint: Alcohol/Drug Intoxication Time Seen by Provider: 20:06 Travel History International Travel<30 days: No Contact w/Intl Traveler<30days: No Traveled to known affect area: No History of Present Illness HPI Patient is a 52-year-old male presenting to emergency Department under a [place] act due to public intoxication. Patient states that he has been drinking all day, he drinks vodka preferably. He has no complaints of pain. He denies any suicidal ideations or homicidal ideations, he has no hallucinations. Patient wants to go home. Symptom onset is unknown, symptoms are exacerbated by alcohol intake. PFSH Past Medical History Hx Anticoagulant Therapy: No Arthritis: Yes (RA) Cardiovascular Problems: Yes (HTN) COPD: Yes Diminished Hearing: No GERD: Yes Hepatitis: Yes (B + C) Hypertension: Yes Pancreatitis: Yes Ulcer: Yes ?: Not Social History Alcohol Use: Yes (DAILY, VODKA) Tobacco Use: Yes (1/2 PPD) Substance Use: No Allergies-Medications (Allergen,Severity, Reaction): Coded Allergies: Penicillins (Verified Allergy, Severe, 12/12/17) prednisone (Verified Allergy, Severe, rash, 12/12/17) Reported Meds & Prescriptions Reported Meds & Active Scripts Active No Active Prescriptions or Reported Medications Review of Systems ROS Limitations: Intoxication Except as stated in HPI: all other systems reviewed are Neg Physical Exam Narrative GENERAL: Well-developed, well-nourished, intoxicated-appearing male. Presenting in no acute distress. SKIN: Warm and dry. HEAD: Atraumatic. Normocephalic. EYES: Pupils equal and round. No scleral icterus. No injection or drainage. ENT: No nasal bleeding or discharge. Mucous membranes pink and moist. NECK: Trachea midline. No JVD. CARDIOVASCULAR: Regular rate and rhythm. RESPIRATORY: No accessory muscle use. Clear to auscultation. Breath sounds equal bilaterally. GASTROINTESTINAL: Abdomen soft, non-tender, nondistended. Hepatic and splenic margins not palpable. MUSCULOSKELETAL: Extremities without clubbing, cyanosis, or edema. No obvious deformities. NEUROLOGICAL: Awake and alert. No obvious cranial nerve deficits. Motor grossly within normal limits. Five out of 5 muscle strength in the arms and legs. Normal speech. PSYCHIATRIC: Appropriate mood and affect Data Data Last Documented VS Vital Signs Date Time Temp Pulse Resp B/P (MAP) Pulse Ox O2 Delivery O2 Flow Rate FiO2 12/14/17 19:03 97.5 103 18 129/86 (100) 99 Orders Orders Alcohol (Ethanol) (12/14/17 20:06) Labs Laboratory Tests Test 12/14/17 20:50 Ethyl Alcohol Level 288 MG/DL MDM Medical Decision Making Medical Screen Exam Complete: Yes Emergency Medical Condition: Yes Interpretation(s) Vital Signs Date Time Temp Pulse Resp B/P (MAP) Pulse Ox O2 Delivery O2 Flow Rate FiO2 12/14/17 19:03 97.5 103 18 129/86 (100) 99 Differential Diagnosis Acute intoxication versus alcoholism versus substance abuse versus other Narrative Course Patient is 52-year-old male presenting to emergency Department under a [facility] act due to public intoxication. Patient's vital signs are stable, alcohol level is 288 at 2000. Patient will be discharged from the emergency department at approximately 2230, patient has demonstrated safe ambulation, he appears sober. He was encouraged to avoid excessive alcohol intake, he should follow- up at [facility]. He was encouraged to return to emergency department for any new or worsening symptoms. Patient verbalized understanding. Patient stable for discharge. Diagnosis Primary Impression: Alcohol intoxication Qualified Codes: F10.920 - Alcohol use, unspecified with intoxication, uncomplicated Referrals: [facility] 1 day Patient Instructions: Abuse of Alcohol (ED), Alcohol Intoxication (ED), General Instructions Additional Instructions: Avoid excessive intake of alcohol Drink more water Try not to be intoxicated in public Return to emergency department for any new or worsening symptoms Follow-up at [facility] for detox Med/Other Pt SpecificInfo: No Change to Meds Scripts No Active Prescriptions or Reported Meds Disposition: 01 DISCHARGE HOME Condition: Stable Cathy Lawrence Dec 14, 2017 21:58
[2017-12-15] MEDS ORDERED: GAVISUS2 PO (04:57)
== END 2017-12-14 22:38 | disposition home or self-care (01) ==
LOC: NEDAMB 18:50
DX: F10.129 Alcohol abuse with intoxication, unspecified (principal); F17.200 Nicotine dependence, unspecified, uncomplicated; M06.9 Rheumatoid arthritis, unspecified; I10 Essential (primary) hypertension; J44.9 Chronic obstructive pulmonary disease, unspecified; K21.9 Gastro-esophageal reflux disease without esophagitis; Z86.19 Personal history of other infectious and parasitic diseases; Z87.19 Personal history of other diseases of the digestive system; Z88.0 Allergy status to penicillin
CPT/HCPCS: 80307; 99283

== ENCOUNTER 2017-12-15 00:39 | Emergency (ER) | payer SELFPAY ==
[~2017-12-15] VITALS: Ht 198.1 cm; Wt 92.0 kg
[2017-12-15 00:48] VITALS: BP 148/101; PULSE 98; RESP 18; TEMP 97.9; O2SAT 100
[2017-12-15] MEDS ORDERED: SODIUM CHLOR 0.9% 1000 ML INJ 1,000 ML IV SCH (03:12)
--- NOTE | 2017-12-15 03:12 | PD ---
HPI Chief Complaint: Abdominal Pain Time Seen by Provider: 03:12 Travel History International Travel<30 days: No Contact w/Intl Traveler<30days: No Traveled to known affect area: No History of Present Illness HPI 52-year-old male complains of abdominal pain epigastric in location. Duration about 12 hours. He drank alcohol today. There is alcohol every day about 1 gallon. States pain is 9/10. Pain is constant. Associated symptoms include restlessness. No fever. PFSH Past Medical History Hx Anticoagulant Therapy: No Arthritis: Yes (RA) Cardiovascular Problems: Yes (HTN) COPD: Yes Diminished Hearing: No GERD: Yes Hepatitis: Yes (B + C) Hypertension: Yes Pancreatitis: Yes Ulcer: Yes Social History Alcohol Use: Yes (DAILY, VODKA 1/2 gallon - gallon) Tobacco Use: Yes (1/2 PPD) Substance Use: No Allergies-Medications (Allergen,Severity, Reaction): Coded Allergies: Penicillins (Verified Allergy, Severe, 12/15/17) prednisone (Verified Allergy, Severe, rash, 12/15/17) Reported Meds & Prescriptions Reported Meds & Active Scripts Active Gaviscon Extra Strength R Liq (Aluminum Hydroxide-Mag Carb Liq) 508-475 Mg/10 Ml Susp 10-20 Ml PO QID PRN 7 Days Maximum 80 mL/24 hrs. Review of Systems Except as stated in HPI: all other systems reviewed are Neg General / Constitutional: No: Fever Physical Exam Narrative GENERAL: 52-year-old male well-nourished well-developed Vital Signs Date Time Temp Pulse Resp B/P (MAP) Pulse Ox O2 Delivery O2 Flow Rate FiO2 12/15/17 03:23 14 100 Room Air 12/15/17 02:56 14 12/15/17 00:48 97.9 98 18 148/101 (117) 100 SKIN: Warm and dry. HEAD: Atraumatic. Normocephalic. EYES: Pupils equal and round. No scleral icterus. No injection or drainage. ENT: No nasal bleeding or discharge. Mucous membranes pink and moist. NECK: Trachea midline. No JVD. CARDIOVASCULAR: Regular rate and rhythm. RESPIRATORY: No accessory muscle use. Clear to auscultation. Breath sounds equal bilaterally. GASTROINTESTINAL: Abdomen soft, non-tender, nondistended. Hepatic and splenic margins not palpable. MUSCULOSKELETAL: Extremities without clubbing, cyanosis, or edema. No obvious deformities. NEUROLOGICAL: Awake and alert. No obvious cranial nerve deficits. Motor grossly within normal limits. Five out of 5 muscle strength in the arms and legs. Normal speech. PSYCHIATRIC: Appropriate mood and affect; insight and judgment normal. Data Data Last Documented VS Vital Signs Date Time Temp Pulse Resp B/P (MAP) Pulse Ox O2 Delivery O2 Flow Rate FiO2 12/15/17 03:23 14 100 Room Air 12/15/17 00:48 97.9 98 148/101 (117) Orders Orders Complete Blood Count With Diff (12/15/17 03:12) Comprehensive Metabolic Panel (12/15/17 03:12) Lipase (12/15/17 03:12) Iv Access Insert/Monitor (12/15/17 03:12) Ecg Monitoring (12/15/17 03:12) Oximetry (12/15/17 03:12) Ondansetron Inj (Zofran Inj) (12/15/17 03:15) Sodium Chlor 0.9% 1000 Ml Inj (Ns 1000 M (12/15/17 03:12) Sodium Chloride 0.9% Flush (Ns Flush) (12/15/17 03:15) Al-Mag Hy-Si 40-40-4 Mg/Ml Liq (Mag-Al P (12/15/17 03:15) Lidocaine 2% Viscous (Xylocaine 2% Visco (12/15/17 03:15) Ed Discharge Order (12/15/17 04:57) Labs Laboratory Tests Test 12/15/17 04:00 White Blood Count 4.6 TH/MM3 Red Blood Count 4.63 MIL/MM3 Hemoglobin 15.6 GM/DL Hematocrit 45.7 % Mean Corpuscular Volume 98.6 FL Mean Corpuscular Hemoglobin 33.8 PG Mean Corpuscular Hemoglobin Concent 34.2 % Red Cell Distribution Width 17.8 % Platelet Count 112 TH/MM3 Mean Platelet Volume 8.2 FL Neutrophils (%) (Auto) 41.6 % Lymphocytes (%) (Auto) 47.4 % Monocytes (%) (Auto) 8.2 % Eosinophils (%) (Auto) 2.2 % Basophils (%) (Auto) 0.6 % Neutrophils # (Auto) 1.9 TH/MM3 Lymphocytes # (Auto) 2.2 TH/MM3 Monocytes # (Auto) 0.4 TH/MM3 Eosinophils # (Auto) 0.1 TH/MM3 Basophils # (Auto) 0.0 TH/MM3 CBC Comment DIFF FINAL Differential Comment Blood Urea Nitrogen 6 MG/DL Creatinine 0.72 MG/DL Random Glucose 82 MG/DL Total Protein 7.8 GM/DL Albumin 4.0 GM/DL Calcium Level 9.0 MG/DL Alkaline Phosphatase 85 U/L Aspartate Amino Transf (AST/SGOT) 277 U/L Alanine Aminotransferase (ALT/SGPT) 85 U/L Total Bilirubin 1.0 MG/DL Sodium Level 141 MEQ/L Potassium Level 4.0 MEQ/L Chloride Level 102 MEQ/L Carbon Dioxide Level 31.1 MEQ/L Anion Gap 8 MEQ/L Estimat Glomerular Filtration Rate 115 ML/MIN Lipase 185 U/L [facility] Medical Decision Making Medical Screen Exam Complete: Yes Emergency Medical Condition: Yes Differential Diagnosis Constipation, Gastritis, Acute Cholecystitis, Biliary Colic, Pancreatitis, PONCE , Hepatitis, Bowel Obstruction, Cystitis, Mesenteric Ischemia, AAA, Appendicitis , Renal Stone/Hydronephrosis, GERD, perforated viscous Narrative Course CBC & BMP Diagram 12/15/17 04:00 Total Protein 7.8, Albumin 4.0, Calcium Level 9.0, Alkaline Phosphatase 85, Aspartate Amino Transf (AST/SGOT) 277 H, Alanine Aminotransferase (ALT/SGPT) 85 H, Total Bilirubin 1.0 Patient has elevated liver enzymes consistent with chronic alcoholism. Recommended treatment is to reduce alcohol intake and adopt a healthy lifestyle. Contact information for [facility] provided. Element of gastritis likely present. Diagnosis Primary Impression: Chronic abdominal pain Additional Impression: Alcoholism Referrals: [facility] 1 day Med/Other Pt SpecificInfo: No Change to Meds Scripts Aluminum Hydroxide-Mag Carb Liq (Gaviscon Extra Strength R Liq) 508-475 Mg/10 Ml Susp 10-20 ML PO QID Y for HEARTBURN for 7 Days, ML 0 Refills Maximum 80 mL/24 hrs. Prov: Juan Carlos Schmitz MD 12/15/17 Disposition: 01 DISCHARGE HOME Condition: Stable Juan Carlos Schmitz MD Dec 15, 2017 03:12
[2017-12-15] MEDS ORDERED: ALUMINUM/MAGNESIUM/SIMETH 30 ML CUP PO ONE (03:15)
[2017-12-15] MEDS ORDERED: SODIUM CHLORIDE 0.9% FLUSH 10 ML FLUSH IV FLUSH PRN (03:15)
[2017-12-15] MEDS ORDERED: ONDANSETRON HCL 4 MG/2 ML VIAL IVP ONE (03:15)
[2017-12-15] MEDS ORDERED: LIDOCAINE VISCOUS 2% SOLN 15 ML UDC PO ONE (03:15)
[2017-12-15 03:23] VITALS: RESP 14; O2SAT 100
[2017-12-15 04:18] LABS: AUTOMATED NEUTROPHIL # 1.9 TH/MM3 (1.8-7.7); BASOPHIL % 0.6 % (0.0-2.0); EOSINOPHIL # 0.1 TH/MM3 (0-0.4); EOSINOPHIL % 2.2 % (0.0-4.0); HEMATOCRIT 45.7 % (39.0-51.0); HEMOGLOBIN 15.6 GM/DL (13.0-17.0); LYMPH % 47.4 % (9.0-44.0); LYMPHOCYTE # 2.2 TH/MM3 (1.0-4.8); MEAN CELL VOLUME 98.6 FL (80.0-100.0); MEAN CORPUSCULAR HEMOGLOBIN 33.8 PG (27.0-34.0); MEAN CORPUSCULAR HGB CONC 34.2 % (32.0-36.0); MEAN PLATELET VOLUME 8.2 FL (7.0-11.0); MONO % 8.2 % (0.0-8.0); MONOCYTE # 0.4 TH/MM3 (0-0.9); NEUT % 41.6 % (16.0-70.0); PLATELET COUNT 112 TH/MM3 (150-450); RED BLOOD COUNT 4.63 MIL/MM3 (4.50-5.90); RED CELL DISTRIBUTION WIDTH 17.8 % (11.6-17.2); WHITE BLOOD COUNT 4.6 TH/MM3 (4.0-11.0)
[2017-12-15 04:52] LABS: ALKALINE PHOSPHATASE 85 U/L (45-117); ALT (GPT) 85 U/L (12-78); AST (GOT) 277 U/L (15-37); BICARBONATE 31.1 MEQ/L (21.0-32.0); BLOOD UREA NITROGEN 6 MG/DL (7-18); CHLORIDE 102 MEQ/L (98-107); CREATININE 0.72 MG/DL (0.60-1.30); GLOMERULAR FILTRATION RATE 115 ML/MIN (>89); GLUCOSE,RANDOM 82 MG/DL (74-106); SODIUM (NA) 141 MEQ/L (136-145); TOTAL PROTEIN 7.8 GM/DL (6.4-8.2)
[2017-12-15] MEDS ORDERED: GAVISUS2 PO (04:57)
== END 2017-12-15 06:48 | disposition home or self-care (01) ==
LOC: NEPC 00:39
DX: R10.13 Epigastric pain (principal); G89.29 Other chronic pain; F10.20 Alcohol dependence, uncomplicated; F17.200 Nicotine dependence, unspecified, uncomplicated
CPT/HCPCS: 80053; 83690; 85025; 96374; 99284; J2405; J7030

== ENCOUNTER 2017-12-22 18:22 | Emergency (ER) | payer OTHER ==
[~2017-12-22] VITALS: Ht 198.1 cm; Wt 85.0 kg
[~2017-12-22 18:22] MED LIST changes: -CLON0.1T PO; +GAVISUS2 PO; -PROT40TA PO
[2017-12-22 19:04] VITALS: BP 127/90; PULSE 99; RESP 18; TEMP 99.1; O2SAT 95
[2017-12-22 19:29] LABS: AUTOMATED NEUTROPHIL # 1.8 TH/MM3 (1.8-7.7); BASOPHIL # 0.1 TH/MM3 (0-0.2); BASOPHIL % 1.1 % (0.0-2.0); EOSINOPHIL # 0.1 TH/MM3 (0-0.4); EOSINOPHIL % 2.5 % (0.0-4.0); HEMATOCRIT 47.7 % (39.0-51.0); HEMOGLOBIN 16.4 GM/DL (13.0-17.0); LYMPH % 50.5 % (9.0-44.0); LYMPHOCYTE # 2.7 TH/MM3 (1.0-4.8); MEAN CELL VOLUME 99.9 FL (80.0-100.0); MEAN CORPUSCULAR HEMOGLOBIN 34.3 PG (27.0-34.0); MEAN CORPUSCULAR HGB CONC 34.3 % (32.0-36.0); MEAN PLATELET VOLUME 8.1 FL (7.0-11.0); MONO % 10.9 % (0.0-8.0); MONOCYTE # 0.6 TH/MM3 (0-0.9); PLATELET COUNT 134 TH/MM3 (150-450); RED BLOOD COUNT 4.77 MIL/MM3 (4.50-5.90); RED CELL DISTRIBUTION WIDTH 17.5 % (11.6-17.2); WHITE BLOOD COUNT 5.3 TH/MM3 (4.0-11.0)
[2017-12-22 19:51] LABS: ALT (GPT) 134 U/L (12-78)
[2017-12-22 19:56] LABS: ALKALINE PHOSPHATASE 109 U/L (45-117); TOTAL BILIRUBIN ADULT 0.7 MG/DL (0.2-1.0); TOTAL PROTEIN 8.1 GM/DL (6.4-8.2)
[2017-12-22 20:01] LABS: AST (GOT) 513 U/L (15-37); BICARBONATE 25.9 MEQ/L (21.0-32.0); BLOOD UREA NITROGEN 6 MG/DL (7-18); CALCIUM 9.4 MG/DL (8.5-10.1); CHLORIDE 104 MEQ/L (98-107); CREATININE 0.71 MG/DL (0.60-1.30); GLOMERULAR FILTRATION RATE 117 ML/MIN (>89); GLUCOSE,RANDOM 150 MG/DL (74-106); SODIUM (NA) 143 MEQ/L (136-145)
[2017-12-22 22:14] VITALS: BP 104/59; PULSE 103; RESP 18; TEMP 98.2; O2SAT 95
[2017-12-23] VITALS (8 sets, daily range): BP systolic 111–154; BP diastolic 62–95; PULSE 98–118; RESP 16–24; TEMP 98.2–99.1; O2SAT 96–100
[2017-12-23] MEDS ORDERED: PANTOPRAZOLE SOD 40 MG DELAYED RELEASE TAB PO ONE
[2017-12-23] MEDS ORDERED: ALUMINUM/MAGNESIUM/SIMETH 30 ML CUP PO ONE
--- NOTE | 2017-12-23 00:05 | PD ---
HPI Chief Complaint: Psychiatric Symptoms Time Seen by Provider: 21:11 Travel History International Travel<30 days: No Contact w/Intl Traveler<30days: No Traveled to known affect area: No History of Present Illness HPI 52-year-old white male well-known to the ER staff and myself for chronic alcohol abuse presents under Rod act. The patient admits to consuming a large amount of alcohol as usual. He has chronic pancreatitis and cirrhosis. Patient also complains of epigastric discomfort which is chronic in nature from his chronic alcohol abuse. Patient denies any true suicidal ideation. No homicidal ideation. No toxic ingestions. He states that he was arguing with his stepdad. PFSH Past Medical History Hx Anticoagulant Therapy: No Arthritis: Yes (RA) Cardiovascular Problems: Yes (HTN) COPD: Yes Diminished Hearing: No GERD: Yes Hepatitis: Yes (B + C) Hypertension: Yes Pancreatitis: Yes Ulcer: Yes Social History Alcohol Use: Yes (DAILY, VODKA 1/2 gallon - gallon) Tobacco Use: Yes (1/2 PPD) Substance Use: Yes (alcohol, cocaine) Allergies-Medications (Allergen,Severity, Reaction): Coded Allergies: Penicillins (Verified Allergy, Severe, 12/15/17) prednisone (Verified Allergy, Severe, rash, 12/15/17) Reported Meds & Prescriptions Reported Meds & Active Scripts Active Gaviscon Extra Strength R Liq (Aluminum Hydroxide-Mag Carb Liq) 508-475 Mg/10 Ml Susp 10-20 Ml PO QID PRN 7 Days Maximum 80 mL/24 hrs. Review of Systems Except as stated in HPI: all other systems reviewed are Neg Physical Exam Narrative GENERAL: Well-nourished, well-developed patient. SKIN: Warm and dry. HEAD: Normocephalic and atraumatic. EYES: No scleral icterus. No injection or drainage. ENT: No nasal drainage noted. Mucous membranes pink. Airway patent. NECK: Supple, trachea midline. Moves head freely without obvious discomfort. CARDIOVASCULAR: Regular rate and rhythm without murmurs, gallops, or rubs. RESPIRATORY: Breath sounds equal bilaterally. No accessory muscle use. GASTROINTESTINAL: Abdomen soft, mild tenderness in the epigastrium, nondistended. No guarding or rebound. EXTREMITIES: No cyanosis or edema. BACK: Nontender without obvious deformity. No CVA tenderness. NEURO: Patient is alert and oriented. no sensorimotor deficits. Nonfocal. Normal speech. PSYCH: No delusions. No auditory or visual hallucinations. Data Data Last Documented VS Vital Signs Date Time Temp Pulse Resp B/P (MAP) Pulse Ox O2 Delivery O2 Flow Rate FiO2 12/22/17 22:14 98.2 103 18 104/59 (74) 95 Room Air Orders Orders Alcohol (Ethanol) (12/22/17 19:07) Complete Blood Count With Diff (12/22/17 19:07) Comprehensive Metabolic Panel (12/22/17 19:07) Drug Screen, Random Urine (12/22/17 19:07) Psych Screen (12/22/17 19:25) Pantoprazole (Protonix) (12/23/17 00:00) Al-Mag Hy-Si 40-40-4 Mg/Ml Liq (Mag-Al P (12/23/17 00:00) Labs Laboratory Tests Test 12/22/17 18:55 12/22/17 20:40 White Blood Count 5.3 TH/MM3 Red Blood Count 4.77 MIL/MM3 Hemoglobin 16.4 GM/DL Hematocrit 47.7 % Mean Corpuscular Volume 99.9 FL Mean Corpuscular Hemoglobin 34.3 PG Mean Corpuscular Hemoglobin Concent 34.3 % Red Cell Distribution Width 17.5 % Platelet Count 134 TH/MM3 Mean Platelet Volume 8.1 FL Neutrophils (%) (Auto) 35.0 % Lymphocytes (%) (Auto) 50.5 % Monocytes (%) (Auto) 10.9 % Eosinophils (%) (Auto) 2.5 % Basophils (%) (Auto) 1.1 % Neutrophils # (Auto) 1.8 TH/MM3 Lymphocytes # (Auto) 2.7 TH/MM3 Monocytes # (Auto) 0.6 TH/MM3 Eosinophils # (Auto) 0.1 TH/MM3 Basophils # (Auto) 0.1 TH/MM3 CBC Comment DIFF FINAL Differential Comment Blood Urea Nitrogen 6 MG/DL Creatinine 0.71 MG/DL Random Glucose 150 MG/DL Total Protein 8.1 GM/DL Albumin 4.0 GM/DL Calcium Level 9.4 MG/DL Alkaline Phosphatase 109 U/L Aspartate Amino Transf (AST/SGOT) 513 U/L Alanine Aminotransferase (ALT/SGPT) 134 U/L Total Bilirubin 0.7 MG/DL Sodium Level 143 MEQ/L Potassium Level 3.3 MEQ/L Chloride Level 104 MEQ/L Carbon Dioxide Level 25.9 MEQ/L Anion Gap 13 MEQ/L Estimat Glomerular Filtration Rate 117 ML/MIN Ethyl Alcohol Level 444 MG/DL Urine Opiates Screen NEG Urine Barbiturates Screen POS Urine Amphetamines Screen NEG Urine Benzodiazepines Screen NEG Urine Cocaine Screen POS Urine Cannabinoids Screen NEG MDM Medical Decision Making Medical Screen Exam Complete: Yes Emergency Medical Condition: Yes Medical Record Reviewed: Yes Interpretation(s) Laboratory Tests Test 12/22/17 18:55 12/22/17 20:40 White Blood Count 5.3 TH/MM3 Red Blood Count 4.77 MIL/MM3 Hemoglobin 16.4 GM/DL Hematocrit 47.7 % Mean Corpuscular Volume 99.9 FL Mean Corpuscular Hemoglobin 34.3 PG Mean Corpuscular Hemoglobin Concent 34.3 % Red Cell Distribution Width 17.5 % Platelet Count 134 TH/MM3 Mean Platelet Volume 8.1 FL Neutrophils (%) (Auto) 35.0 % Lymphocytes (%) (Auto) 50.5 % Monocytes (%) (Auto) 10.9 % Eosinophils (%) (Auto) 2.5 % Basophils (%) (Auto) 1.1 % Neutrophils # (Auto) 1.8 TH/MM3 Lymphocytes # (Auto) 2.7 TH/MM3 Monocytes # (Auto) 0.6 TH/MM3 Eosinophils # (Auto) 0.1 TH/MM3 Basophils # (Auto) 0.1 TH/MM3 CBC Comment DIFF FINAL Differential Comment Blood Urea Nitrogen 6 MG/DL Creatinine 0.71 MG/DL Random Glucose 150 MG/DL Total Protein 8.1 GM/DL Albumin 4.0 GM/DL Calcium Level 9.4 MG/DL Alkaline Phosphatase 109 U/L Aspartate Amino Transf (AST/SGOT) 513 U/L Alanine Aminotransferase (ALT/SGPT) 134 U/L Total Bilirubin 0.7 MG/DL Sodium Level 143 MEQ/L Potassium Level 3.3 MEQ/L Chloride Level 104 MEQ/L Carbon Dioxide Level 25.9 MEQ/L Anion Gap 13 MEQ/L Estimat Glomerular Filtration Rate 117 ML/MIN Ethyl Alcohol Level 444 MG/DL Urine Opiates Screen NEG Urine Barbiturates Screen POS Urine Amphetamines Screen NEG Urine Benzodiazepines Screen NEG Urine Cocaine Screen POS Urine Cannabinoids Screen NEG Differential Diagnosis MDM: High Differential diagnoses: Schizophrenia, schizoaffective disorder, bipolar, anxiety, depression, adjustment reaction, mood disorder NOS, ODD, depressive disorder NOS, dementia, dementia with agitation, psychosis NOS, substance induced mood disorder, DMDD, Asperger syndrome, infection,electrolyte abnormality, malingering. Narrative Course Mental health screening discussed with the patient. Psychiatric screen ordered. Patient is given Maalox and Protonix 40 mg by mouth. Patient is intoxicated. He has a positive drug test. He'll be evaluated by the psychiatrist morning I suspect his Rod act will be lifted and he will be allowed to go home. The patient has been medically cleared. This is medical clearance for psychiatric admission, alcohol abuse with intoxication, substance abuse Diagnosis Primary Impression: Medical clearance for psychiatric admission Additional Impressions: Alcohol abuse with intoxication substance abuse Condition: Stable Kalin Mcmanus Dec 23, 2017 00:05
[2017-12-23] MEDS ORDERED: LORazepam 2 MG/ML VIAL ONE (08:31)
[2017-12-23] MEDS ORDERED: LORazepam 2 MG/ML VIAL IV PUSH PRN ×3 (08:45)
[2017-12-23] MEDS ORDERED: ONDANSETRON ODT 4 MG TAB PO ONE (08:45)
[2017-12-23] MEDS ORDERED: FLUMAZENIL 0.5 MG/5 ML VIAL IV PUSH PRN (08:45)
[2017-12-23] MEDS ORDERED: LORazepam 1 MG TAB PO PRN (08:45)
[2017-12-23] MEDS ORDERED: LORazepam 2 MG TAB PO PRN (08:45)
[2017-12-23] MEDS: LORazepam 2 MG/ML VIAL IV PUSH PRN ×2 (10:16→11:39)
--- NOTE | 2017-12-23 13:17 | PD ---
Physical Exam Time Seen by Provider: 13:15 Narrative Please refer to previous provider's documentation for details surrounding the current visit. Data Data Last Documented VS Vital Signs Date Time Temp Pulse Resp B/P (MAP) Pulse Ox O2 Delivery O2 Flow Rate FiO2 12/23/17 12:00 102 16 124/87 (99) 100 Room Air 12/23/17 11:24 98.9 Orders Orders Alcohol (Ethanol) (12/22/17 19:07) Complete Blood Count With Diff (12/22/17 19:07) Comprehensive Metabolic Panel (12/22/17 19:07) Drug Screen, Random Urine (12/22/17 19:07) Psych Screen (12/22/17 19:25) Pantoprazole (Protonix) (12/23/17 00:00) Al-Mag Hy-Si 40-40-4 Mg/Ml Liq (Mag-Al P (12/23/17 00:00) Diet Regular Basic (12/23/17 Breakfast) Alcohol Withdrawal Asmt-Ciwa ONCE (12/23/17 08:31) Flumazenil Inj (Romazicon Inj) (12/23/17 08:45) Lorazepam (Ativan) (12/23/17 08:45) Lorazepam Inj (Ativan Inj) (12/23/17 08:45) Lorazepam (Ativan) (12/23/17 08:45) Lorazepam Inj (Ativan Inj) (12/23/17 08:45) Lorazepam Inj (Ativan Inj) (12/23/17 08:45) Lorazepam Inj (Ativan Inj) (12/23/17 08:45) Lorazepam Inj (Ativan Inj) (12/23/17 08:31) Ondansetron Odt (Zofran Odt) (12/23/17 08:45) Diet Regular Basic (12/23/17 Lunch) Ed Discharge Order (12/23/17 13:13) Labs Laboratory Tests Test 12/22/17 18:55 12/22/17 20:40 White Blood Count 5.3 TH/MM3 Red Blood Count 4.77 MIL/MM3 Hemoglobin 16.4 GM/DL Hematocrit 47.7 % Mean Corpuscular Volume 99.9 FL Mean Corpuscular Hemoglobin 34.3 PG Mean Corpuscular Hemoglobin Concent 34.3 % Red Cell Distribution Width 17.5 % Platelet Count 134 TH/MM3 Mean Platelet Volume 8.1 FL Neutrophils (%) (Auto) 35.0 % Lymphocytes (%) (Auto) 50.5 % Monocytes (%) (Auto) 10.9 % Eosinophils (%) (Auto) 2.5 % Basophils (%) (Auto) 1.1 % Neutrophils # (Auto) 1.8 TH/MM3 Lymphocytes # (Auto) 2.7 TH/MM3 Monocytes # (Auto) 0.6 TH/MM3 Eosinophils # (Auto) 0.1 TH/MM3 Basophils # (Auto) 0.1 TH/MM3 CBC Comment DIFF FINAL Differential Comment Blood Urea Nitrogen 6 MG/DL Creatinine 0.71 MG/DL Random Glucose 150 MG/DL Total Protein 8.1 GM/DL Albumin 4.0 GM/DL Calcium Level 9.4 MG/DL Alkaline Phosphatase 109 U/L Aspartate Amino Transf (AST/SGOT) 513 U/L Alanine Aminotransferase (ALT/SGPT) 134 U/L Total Bilirubin 0.7 MG/DL Sodium Level 143 MEQ/L Potassium Level 3.3 MEQ/L Chloride Level 104 MEQ/L Carbon Dioxide Level 25.9 MEQ/L Anion Gap 13 MEQ/L Estimat Glomerular Filtration Rate 117 ML/MIN Ethyl Alcohol Level 444 MG/DL Urine Opiates Screen NEG Urine Barbiturates Screen POS Urine Amphetamines Screen NEG Urine Benzodiazepines Screen NEG Urine Cocaine Screen POS Urine Cannabinoids Screen NEG MDM Medical Record Reviewed: Yes Supervised Visit with JAMES: No Narrative Course Pt presents under a BA; has been medically cleared, evaluated by psychiatry. BA has been lifted; with no further medical needs; pt will be discharged at this time. Diagnosis Primary Impression: Medical clearance for psychiatric admission Additional Impressions: Alcohol abuse with intoxication substance abuse Referrals: [facility] (Out patient) Patient Instructions: Abuse of Alcohol (ED), General Instructions Disposition: 01 DISCHARGE HOME Condition: Stable Nikki VelezP Dec 23, 2017 13:17
--- NOTE | 2017-12-23 13:31 | PD ---
History of Present Illness Chief Complaint: Psychiatric Symptoms Time Seen by Provider: 13:10 Travel History International Travel<30 Days: No Contact w/Intl Traveler<30days: No Known affected area: No Legal Status Legal Status: Rod Act Rod Act Signed By: Shobha Will Rod Act Comment: 12/22/2017 6:00 PM [facility]. [facility][id number] C/N [id number] History of Present Illness: History of Present Illness HPI 52-year-old white, single, unemployed, male with history of alcohol dependence, multiple ED visits for alcohol related issues, who is now under a Rod act initiated by law enforcement alleging that the patient threatened that he will harm himself. This happened in context of alcohol intoxication. The patient presents with a blood alcohol level of 444 as well as positive toxicology for barbiturates and cocaine. The patient is allowed to sober up clinically and safe environment and under a CIHI protocol. He presented no behavioral concerns and no suicidality. Electronic medical record review. Patient has been seen in the ED 5 times this year for alcohol related issues. He was sent to [facility] on October 20 for detox. Patient is seen this morning. He is clinically sober. He does present some tremors of his hands. His speech is clear, logical of normal tone and rate. Patient does not present any evidence of unstable mental illness. He denies suicidal or homicidal ideation, intent or plan and states" I wasn't going to do that I don't want to hurt myself or anyone else." He tells me that he has been trying to cut down on his alcohol consumption on his own. Remainder of psychiatric review of systems is negative PFSH Past Medical History Hx Anticoagulant Therapy: No Arthritis: Yes (RA) Cardiovascular Problems: Yes (HTN) COPD: Yes Diminished Hearing: No GERD: Yes Hepatitis: Yes (B + C) Hypertension: Yes Pancreatitis: Yes Ulcer: Yes Influenza Vaccination: Yes Psychiatric History Psychiatric History Hx Psychiatric Treatment: Patient with a long history of alcohol abuse with intoxication with numerous visits to ED. no previous history of suicide attempts. History of Inpatient Treatment: No Guns or firearms in home: No Social History Single, unemployed male who lives with his mother. He has completed an 11th grade education. Hx Alcohol Use: Yes (DAILY, VODKA 1/2 gallon - gallon) Hx Tobacco Use: Yes (1/2 PPD) Hx Substance Use: Yes (alcohol, cocaine) Substance Use Type: Alcohol, Cocaine, Other Hx of Substance Use Treatment: Yes (has received substance abuse treatment at [facility]) Family Psychiatric History Negative Allergies-Medications (Allergen,Severity, Reaction): Coded Allergies: Penicillins (Verified Allergy, Severe, 12/15/17) prednisone (Verified Allergy, Severe, rash, 12/15/17) Reported Meds & Prescriptions Reported Meds & Active Scripts Active Gaviscon Extra Strength R Liq (Aluminum Hydroxide-Mag Carb Liq) 508-475 Mg/10 Ml Susp 10-20 Ml PO QID PRN 7 Days Maximum 80 mL/24 hrs. Review of Systems Gastrointestinal: COMPLAINS OF: Nausea Neurologic: COMPLAINS OF: Tremor (related to withdrawal and chronic alcohol use ) Psychiatric: DENIES: Anxiety, Confusion, Mood changes, Depression, Hallucinations, Agitation, Suicidal Ideation, Homicidal Ideation, Delusions Except as stated in HPI: all other systems reviewed are Neg Mental Status Examination Appearance: Appropriate (in hospital [facility] with disheveled appearance), Disheveled Consciousness: Alert Orientation: x4 Motor Activity: Normal gait Speech: Unremarkable Language: Adequate Fund of Knowledge: Adequate Attention and Concentration: Adequate Memory: Unremarkable Mood: Appropriate Affect: Appropriate Thought Process & Associations: Intact, Logical, Goal directed Thought Content: Appropriate Hallucination Type: None Delusion Type: None Suicidal Ideation: No Suicidal Plan: No Suicidal Intention: No Homicidal Ideation: No Homicidal Plan: No Homicidal Intention: No Insight: Poor Judgment: Adequate MDM Medical Decision Making Medical Record Reviewed: Yes Assessment/Plan 52-year-old white, single, unemployed, male with history of alcohol dependence, multiple ED visits for alcohol related issues, who is now under a Rod act initiated by law enforcement alleging that the patient threatened that he will harm himself. This happened in context of alcohol intoxication. The patient presents with a blood alcohol level of 444 as well as positive toxicology for barbiturates and cocaine. The patient is allowed to sober up clinically and safe environment and under a CIWA protocol. He presented no behavioral concerns and no suicidality. The patient wants clinically sober and denies any suicidal or homicidal ideation, intent or plan. There is no evidence of any unstable mental illness. He has a long history of alcohol dependence and failed attempts at remaining sober. I once again provided him with the information regarding services available to him via [facility] for treatment of his alcohol dependence. The Rod act is lifted . Psychiatrically clear for discharge from the ED. Orders Orders Alcohol (Ethanol) (12/22/17 19:07) Complete Blood Count With Diff (12/22/17 19:07) Comprehensive Metabolic Panel (12/22/17 19:07) Drug Screen, Random Urine (12/22/17 19:07) Psych Screen (12/22/17 19:25) Pantoprazole (Protonix) (12/23/17 00:00) Al-Mag Hy-Si 40-40-4 Mg/Ml Liq (Mag-Al P (12/23/17 00:00) Diet Regular Basic (12/23/17 Breakfast) Alcohol Withdrawal Asmt-Ciwa ONCE (12/23/17 08:31) Flumazenil Inj (Romazicon Inj) (12/23/17 08:45) Lorazepam (Ativan) (12/23/17 08:45) Lorazepam Inj (Ativan Inj) (12/23/17 08:45) Lorazepam (Ativan) (12/23/17 08:45) Lorazepam Inj (Ativan Inj) (12/23/17 08:45) Lorazepam Inj (Ativan Inj) (12/23/17 08:45) Lorazepam Inj (Ativan Inj) (12/23/17 08:45) Lorazepam Inj (Ativan Inj) (12/23/17 08:31) Ondansetron Odt (Zofran Odt) (12/23/17 08:45) Diet Regular Basic (12/23/17 Lunch) Ed Discharge Order (12/23/17 13:13) Results Vital Signs Date Time Temp Pulse Resp B/P (MAP) Pulse Ox O2 Delivery O2 Flow Rate FiO2 12/23/17 13:14 98 16 128/82 (97) 99 12/23/17 12:00 102 16 124/87 (99) 100 Room Air 12/23/17 11:24 98.9 118 20 136/93 (107) 99 Room Air 12/23/17 10:00 98.9 114 20 140/89 (106) 99 Room Air 12/23/17 09:00 98.2 98 20 127/89 (102) 98 Room Air 12/23/17 08:30 98.2 107 24 154/95 (114) 96 Room Air 12/23/17 06:17 99.1 115 18 122/79 (93) 96 Room Air 12/23/17 01:49 98.6 112 18 111/62 (78) 97 Room Air 12/22/17 22:14 98.2 103 18 104/59 (74) 95 Room Air 12/22/17 19:04 99.1 99 18 127/90 (102) 95 Room Air Laboratory Tests Test 12/22/17 18:55 12/22/17 20:40 White Blood Count 5.3 Red Blood Count 4.77 Hemoglobin 16.4 Hematocrit 47.7 Mean Corpuscular Volume 99.9 Mean Corpuscular Hemoglobin 34.3 Mean Corpuscular Hemoglobin Concent 34.3 Red Cell Distribution Width 17.5 Platelet Count 134 Mean Platelet Volume 8.1 Neutrophils (%) (Auto) 35.0 Lymphocytes (%) (Auto) 50.5 Monocytes (%) (Auto) 10.9 Eosinophils (%) (Auto) 2.5 Basophils (%) (Auto) 1.1 Neutrophils # (Auto) 1.8 Lymphocytes # (Auto) 2.7 Monocytes # (Auto) 0.6 Eosinophils # (Auto) 0.1 Basophils # (Auto) 0.1 CBC Comment DIFF FINAL Differential Comment Blood Urea Nitrogen 6 Creatinine 0.71 Random Glucose 150 Total Protein 8.1 Albumin 4.0 Calcium Level 9.4 Alkaline Phosphatase 109 Aspartate Amino Transf (AST/SGOT) 513 Alanine Aminotransferase (ALT/SGPT) 134 Total Bilirubin 0.7 Sodium Level 143 Potassium Level 3.3 Chloride Level 104 Carbon Dioxide Level 25.9 Anion Gap 13 Estimat Glomerular Filtration Rate 117 Ethyl Alcohol Level 444 Urine Opiates Screen NEG Urine Barbiturates Screen POS Urine Amphetamines Screen NEG Urine Benzodiazepines Screen NEG Urine Cocaine Screen POS Urine Cannabinoids Screen NEG Diagnosis Primary Impression: Alcohol dependence with acute alcoholic intoxication Psychiatrically Cleared: Yes Departure Forms: Tests/Procedures Patient Instructions: General Instructions, Abuse of Alcohol (ED), Alcohol Dependence (ED) Med/ Other Pt Specific Info: No Meds Exist/No RX given Disposition: 01 DISCHARGE HOME Condition: Stable Problem Qualifiers Primary Impression: Alcohol dependence with acute alcoholic intoxication Qualified Codes: F10.220 - Alcohol dependence with intoxication, uncomplicated Floridalma Robert Dec 23, 2017 13:31
== END 2017-12-23 14:23 | disposition home or self-care (01) ==
LOC: NEDAMB 18:22 → NEPJ 12-23 14:23
DX: F10.220 Alcohol dependence with intoxication, uncomplicated (principal); Y90.8 Blood alcohol level of 240 mg/100 ml or more; F19.10 Other psychoactive substance abuse, uncomplicated; I10 Essential (primary) hypertension; B19.10 Unspecified viral hepatitis B without hepatic coma; B19.20 Unspecified viral hepatitis C without hepatic coma; K74.60 Unspecified cirrhosis of liver; K86.1 Other chronic pancreatitis; F17.200 Nicotine dependence, unspecified, uncomplicated
CPT/HCPCS: 80053; 80307; 85025; 96374; 96376; 99284; J2060